=== PATIENT | male | born 1955 | race Caucasian/White ===

== ENCOUNTER 2017-07-18 16:21 | Inpatient (IN) ==
[2017-07-18] MEDS ORDERED: ONDANSETRON 4 MG/2 ML VIAL IV PRN (21:58)
[2017-07-18] MEDS ORDERED: ACETAMINOPHEN 325 MG TABLET PO PRN (21:58)
[2017-07-18] MEDS ORDERED: ALBUTEROL 2.5 MG/3 ML NEB RESP TX PRN (22:45)
[2017-07-18] MEDS: ENOXAPARIN 40 MG/0.4 ML SYRINGE SUBCUT SCH (23:02)
[2017-07-18] MEDS: methylPREDNISolone SOD SUC 40 MG/1 ML VIAL IV SCH (23:02)
[2017-07-18] MEDS: SODIUM CHLORIDE 0.9% 1,000 ML IV SCH (23:03)
[2017-07-18] MEDS: AZITHROMYCIN INJ 500 MG in SODIUM CHLORIDE 0.9% 250 ML IV SCH (23:51)
[2017-07-19] MEDS: ALBUTEROL/IPRATROPIUM 3 ML NEB RESP TX SCH ×4 (00:04→20:48)
[2017-07-19] MEDS: DILTIAZEM INJ 100 MG in SODIUM CHLORIDE 0.9% 100 ML IV SCH (00:30)
[2017-07-19] MEDS ORDERED: METAXALONE 800 MG TABLET PO PRN (00:49)
[2017-07-19 03:53] LABS: Basophils # 0.1 10*3/uL (0.0-0.2); Basophils % 0.2 % (0.0-0.8); Hematocrit 32.3 VOL% (42.0-52.0); Hemoglobin 10.1 GM/DL (14.0-18.0); Immature Granulocytes % 1.7 %; Immature Granulocytes Absolute 0.63 #; Lymphocytes # 0.4 10*3/uL (1.4-4.0); Mean Corpuscular HGB Conc 31.3 GM/DL (32-36); Mean Corpuscular Hemoglobin 23 PG (27-34); Mean Corpuscular Volume 72.9 FL (87-102); Mean Platelet Volume 11.1 FL (9.6-12.0); Monocytes # 0.8 10*3/uL (0.11-0.8); Monocytes % 2.2 % (1.7-12.7); Neutrophils # 36.2 10*3/uL (1.4-7.4); Neutrophils % 94.9 % (38.7-73.9); Platelet Count 286 T/CUMM (130-400); Red Blood Count 4.43 MC/CUMM (3.8-5.5); Red Cell Distribution Width 16.8 % (9.3-17.3); White Blood Count 38.1 T/CUMM (4-12)
[2017-07-19 04:30] LABS: Alanine Aminotransferase < 9 U/L (16-61); Albumin 1.8 G/DL (3.4-5.0); Alkaline Phosphatase 122 U/L (45-117); Aspartate Amino Transferase 11 U/L (0-37); Blood Urea Nitrogen 7 MG/DL (7-18); Free T4 (Free Thyroxine) 1.06 NG/DL (0.76-1.46); Glucose 115 MG/DL (74-106); Magnesium 1.8 MG/DL (1.8-2.4); Osmolality,Calculated 260.7 MOS/KG (273-304); Potassium 3.8 MMOL/L (3.5-5.1); Sodium 131 MMOL/L (136-145); Thyroid Stimulating Hormone 0.328 uIU/ml (0.358-3.74); Total Protein 6.6 G/DL (6.4-8.3)
[2017-07-19 05:05] LABS: Anisocytosis 1+; Band Neutrophils 2 % (0-10); Lymphocytes 2 % (20-55); Macrocytosis 1+; Platelet Estimate Normal; Segmented Neutrophils 94 % (50-85); Total Cells Counted 100
[2017-07-19] MEDS: methylPREDNISolone SOD SUC 40 MG/1 ML VIAL IV SCH ×3 (07:15→22:18)
[2017-07-19] MEDS ORDERED: PANTOPRAZOLE 40 MG TABLET PO SCH (09:00)
[2017-07-19] MEDS: SODIUM CHLORIDE 0.9% 1,000 ML IV SCH ×2 (09:21→17:37)
[2017-07-19] MEDS: CALCIUM (CITRATE)/VITAMIN D 200 MG-125 UNIT TABLET PO SCH (09:22)
[2017-07-19] MEDS: METOPROLOL TARTRATE 25 MG TABLET PO SCH ×2 (09:23→22:19)
[2017-07-19] MEDS: ALPRAZolam 0.5 MG TABLET PO SCH ×3 (09:23→22:19)
[2017-07-19] MEDS: PANTOPRAZOLE 40 MG TABLET PO SCH ×2 (09:23→22:19)
[2017-07-19] MEDS: GABAPENTIN 400 MG CAPSULE PO SCH (09:23)
[2017-07-19] MEDS: ASPIRIN 325 MG TABLET PO SCH (09:24)
[2017-07-19] MEDS: POTASSIUM CHLORIDE 10 MEQ TABLET PO SCH (09:24)
[2017-07-19] MEDS: DOCUSATE SODIUM 100 MG CAPSULE PO SCH (09:24)
[2017-07-19] MEDS: ALFUZOSIN 10 MG TABLET PO SCH (09:24)
[2017-07-19] MEDS ORDERED: SODIUM CHLORIDE 0.9% 500 ML IV ONE (10:48)
[2017-07-19] MEDS: DOPamine 800 MG/250 ML PREMIX IV SCH (11:28)
[2017-07-19] MEDS: cefTRIAXone 1,000 MG in SYRINGE 1 EACH IV SCH (17:37)
[2017-07-19] MEDS: AZITHROMYCIN INJ 500 MG in SODIUM CHLORIDE 0.9% 250 ML IV SCH (22:18)
[2017-07-19] MEDS: ENOXAPARIN 40 MG/0.4 ML SYRINGE SUBCUT SCH (22:19)
[2017-07-19] MEDS: SERTRALINE 100 MG TABLET PO SCH (22:19)
[2017-07-20] MEDS: NOREPINEPHRINE 8 MG in SODIUM CHLORIDE 0.9% 242 ML IV SCH ×2 (00:05→23:31)
[2017-07-20] MEDS: ALBUTEROL/IPRATROPIUM 3 ML NEB RESP TX SCH ×4 (00:22→19:30)
[2017-07-20] MEDS: DILTIAZEM INJ 100 MG in SODIUM CHLORIDE 0.9% 100 ML IV SCH ×2 (02:41→21:35)
[2017-07-20] MEDS: SODIUM CHLORIDE 0.9% 1,000 ML IV SCH ×3 (03:30→18:15)
[2017-07-20 05:54] LABS: Basophils % 0.1 % (0.0-0.8); Hematocrit 28.8 VOL% (42.0-52.0); Hemoglobin 8.7 GM/DL (14.0-18.0); Immature Granulocytes % 0.8 %; Immature Granulocytes Absolute 0.18 #; Lymphocytes # 0.4 10*3/uL (1.4-4.0); Lymphocytes % 1.7 % (21.2-54.2); Mean Corpuscular HGB Conc 30.2 GM/DL (32-36); Mean Corpuscular Hemoglobin 23 PG (27-34); Mean Corpuscular Volume 74.4 FL (87-102); Mean Platelet Volume 11.4 FL (9.6-12.0); Monocytes # 0.5 10*3/uL (0.11-0.8); Monocytes % 2.2 % (1.7-12.7); Neutrophils # 21.8 10*3/uL (1.4-7.4); Neutrophils % 95.2 % (38.7-73.9); Platelet Count 287 T/CUMM (130-400); Red Blood Count 3.87 MC/CUMM (3.8-5.5); Red Cell Distribution Width 17.2 % (9.3-17.3); White Blood Count 22.9 T/CUMM (4-12)
[2017-07-20 06:22] LABS: Alanine Aminotransferase < 9 U/L (16-61); Albumin 1.7 G/DL (3.4-5.0); Alkaline Phosphatase 113 U/L (45-117); Aspartate Amino Transferase 9 U/L (0-37); Blood Urea Nitrogen 16 MG/DL (7-18); Calcium 7.9 MG/DL (8.5-10.1); Glucose 139 MG/DL (74-106); Osmolality,Calculated 272.1 MOS/KG (273-304); Potassium 4.3 MMOL/L (3.5-5.1); Sodium 135 MMOL/L (136-145); Total Protein 6.4 G/DL (6.4-8.3)
[2017-07-20 06:39] LABS: Giant Platelets Few; Hypochromasia 1+; Lymphocytes 3 % (20-55); Macrocytosis Slight; Ovalocytes Slight; Platelet Estimate Adequate; Segmented Neutrophils 95 % (50-85); Total Cells Counted 100
[2017-07-20] MEDS: methylPREDNISolone SOD SUC 40 MG/1 ML VIAL IV SCH ×3 (07:02→22:39)
[2017-07-20] MEDS: METOPROLOL TARTRATE 25 MG TABLET PO SCH ×2 (11:05→20:13)
[2017-07-20] MEDS: DOCUSATE SODIUM 100 MG CAPSULE PO SCH (11:05)
[2017-07-20] MEDS: PANTOPRAZOLE 40 MG TABLET PO SCH ×2 (11:05→20:13)
[2017-07-20] MEDS: CALCIUM (CITRATE)/VITAMIN D 200 MG-125 UNIT TABLET PO SCH (11:06)
[2017-07-20] MEDS: ASPIRIN 325 MG TABLET PO SCH (11:06)
[2017-07-20] MEDS: ALFUZOSIN 10 MG TABLET PO SCH (11:06)
[2017-07-20] MEDS: ALPRAZolam 0.5 MG TABLET PO SCH ×3 (11:06→20:13)
[2017-07-20] MEDS: POTASSIUM CHLORIDE 10 MEQ TABLET PO SCH (11:06)
[2017-07-20] MEDS: GABAPENTIN 400 MG CAPSULE PO SCH (11:06)
[2017-07-20] MEDS: DOPamine 800 MG/250 ML PREMIX IV SCH (11:08)
[2017-07-20] MEDS: cefTRIAXone 1,000 MG in SYRINGE 1 EACH IV SCH (15:22)
[2017-07-20] MEDS: SERTRALINE 100 MG TABLET PO SCH (20:13)
[2017-07-20] MEDS: traZODone 50 MG TABLET PO PRN (20:20)
[2017-07-20] MEDS: AZITHROMYCIN INJ 500 MG in SODIUM CHLORIDE 0.9% 250 ML IV SCH (22:39)
[2017-07-21] MEDS: ALBUTEROL/IPRATROPIUM 3 ML NEB RESP TX SCH ×4 (00:36→19:17)
[2017-07-21] MEDS: SODIUM CHLORIDE 0.9% 1,000 ML IV SCH ×2 (03:45→10:56)
[2017-07-21 04:32] LABS: Hematocrit 26.3 VOL% (42.0-52.0); Hemoglobin 7.8 GM/DL (14.0-18.0)
[2017-07-21] MEDS: methylPREDNISolone SOD SUC 40 MG/1 ML VIAL IV SCH ×3 (06:19→23:21)
[2017-07-21 07:46] LABS: Osmolality,Calculated 277.5 MOS/KG (273-304)
[2017-07-21] MEDS ORDERED: FUROSEMIDE 20 MG/2 ML VIAL IV ONE ×2 (09:29→17:04)
[2017-07-21] MEDS ORDERED: FUROSEMIDE 40 MG/4 ML VIAL ONE (09:35)
[2017-07-21] MEDS: CALCIUM (CITRATE)/VITAMIN D 200 MG-125 UNIT TABLET PO SCH (09:51)
[2017-07-21] MEDS: ALPRAZolam 0.5 MG TABLET PO SCH ×3 (09:51→23:15)
[2017-07-21] MEDS: ALFUZOSIN 10 MG TABLET PO SCH (09:51)
[2017-07-21] MEDS: POTASSIUM CHLORIDE 10 MEQ TABLET PO SCH (09:51)
[2017-07-21] MEDS: GABAPENTIN 400 MG CAPSULE PO SCH (09:52)
[2017-07-21] MEDS: DOCUSATE SODIUM 100 MG CAPSULE PO SCH (09:52)
[2017-07-21] MEDS: ASPIRIN 325 MG TABLET PO SCH (09:52)
[2017-07-21] MEDS: PANTOPRAZOLE 40 MG TABLET PO SCH ×2 (09:52→23:15)
[2017-07-21] MEDS: METOPROLOL TARTRATE 25 MG TABLET PO SCH ×2 (09:53→23:14)
[2017-07-21] MEDS: cefTRIAXone 1,000 MG in SYRINGE 1 EACH IV SCH (15:19)
[2017-07-21 19:09] LABS: Apearance,Urine CLEAR (Clear); Bilirubin,Urine Negative (Negative); Blood, Urine Negative (Negative); Glucose,Urine (UA) Negative (Negative); Ketones,Urine Negative (Negative); Nitrite,Urine Negative (Negative); Protein,Urine Negative; Urine Color Colorless (Yellow); Urine Specific Gravity 1.004 (1.001-1.035); Urine Urobilinogen < 2.0 EU/DL (0.2-1.0); WBC,Urine <1 /HPF (0-6)
[2017-07-21] MEDS: DILTIAZEM INJ 100 MG in SODIUM CHLORIDE 0.9% 100 ML IV SCH (21:30)
[2017-07-21 22:34] LABS: ABG Base Excess 5.2 MMOL/L (-2.5-2.5); ABG HCO3 28.3 MMOL/L (20-26); ABG Oxygen Saturation 44.9 % (95-100); ABG PCO2 60.4 MM HG (35-48); ABG PH 7.337 (7.35-7.45); ABG TCO2 30.3 MMOL/L (23-27); Allen Test Positive; Pt O2 Delivery Device BIPAP
[2017-07-21 22:35] LABS: ABG PO2 28.8 MM HG (80-95)
[2017-07-21] MEDS: SERTRALINE 100 MG TABLET PO SCH (23:15)
[2017-07-21] MEDS: AZITHROMYCIN INJ 500 MG in SODIUM CHLORIDE 0.9% 250 ML IV SCH (23:21)
[2017-07-21] MEDS: NOREPINEPHRINE 8 MG in SODIUM CHLORIDE 0.9% 242 ML IV SCH (23:59)
[2017-07-22] MEDS ORDERED: PROPOFOL 1,000 MG/100 ML BOTTLE IV ONE (00:27)
[2017-07-22] MEDS ORDERED: FUROSEMIDE 40 MG/4 ML VIAL ONE (00:37)
[2017-07-22] MEDS: PROPOFOL 1,000 MG/100 ML BOTTLE IV SCH ×2 (00:50→09:10)
[2017-07-22] MEDS ORDERED: PROPOFOL 200 MG/20 ML VIAL IV ONE (01:05)
[2017-07-22] MEDS: ALBUTEROL/IPRATROPIUM 3 ML NEB RESP TX SCH ×4 (01:08→19:17)
[2017-07-22] MEDS ORDERED: FUROSEMIDE 40 MG/4 ML VIAL IV ONE (01:09)
[2017-07-22 01:17] LABS: ABG Base Excess 0.1 MMOL/L (-2.5-2.5); ABG HCO3 24.6 MMOL/L (20-26); ABG Oxygen Saturation 98.8 % (95-100); ABG PH 7.215 (7.35-7.45); ABG TCO2 27.8 MMOL/L (23-27); Allen Test Positive; Pt O2 Delivery Device Ventilator
[2017-07-22 01:19] LABS: ABG PCO2 72.2 MM HG (35-48)
[2017-07-22 01:22] LABS: Hemoglobin 8.7 GM/DL (14.0-18.0); Immature Granulocytes % 1.2 %; Immature Granulocytes Absolute 0.26 #; Lymphocytes # 0.5 10*3/uL (1.4-4.0); Lymphocytes % 2.2 % (21.2-54.2); Mean Corpuscular HGB Conc 28.3 GM/DL (32-36); Mean Corpuscular Hemoglobin 23 PG (27-34); Mean Corpuscular Volume 79.3 FL (87-102); Mean Platelet Volume 11.8 FL (9.6-12.0); Monocytes # 1.3 10*3/uL (0.11-0.8); Monocytes % 5.8 % (1.7-12.7); NRBC # 0.11 10*3/uL; Neutrophils # 19.9 10*3/uL (1.4-7.4); Neutrophils % 90.8 % (38.7-73.9); Platelet Count 273 T/CUMM (130-400); Red Blood Count 3.87 MC/CUMM (3.8-5.5); Red Cell Distribution Width 18.5 % (9.3-17.3); White Blood Count 21.9 T/CUMM (4-12)
[2017-07-22 01:28] LABS: Hematocrit 29.9 VOL% (42.0-52.0)
[2017-07-22 01:30] LABS: INR 1.2; PT Patient Result 12.6 SECS; Partial Thromboplastin Time 27.4 SECS (0-40)
[2017-07-22 01:45] LABS: Alanine Aminotransferase 24 U/L (16-61); Albumin 1.8 G/DL (3.4-5.0); Alkaline Phosphatase 110 U/L (45-117); Aspartate Amino Transferase 24 U/L (0-37); Bilirubin,Total < 0.39 MG/DL (0.2-1.0); Blood Urea Nitrogen 15 MG/DL (7-18); Calcium 8.4 MG/DL (8.5-10.1); Glucose 241 MG/DL (74-106); Osmolality,Calculated 281.8 MOS/KG (273-304); Potassium 3.7 MMOL/L (3.5-5.1); Sodium 137 MMOL/L (136-145); Total Protein 6.2 G/DL (6.4-8.3)
[2017-07-22 01:54] LABS: Troponin I Only < 0.015 NG/ML (0.00-0.045)
[2017-07-22 02:23] LABS: Band Neutrophils 1 % (0-10); Lymphocytes 1 % (20-55); Myelocytes 2 %; Segmented Neutrophils 94 % (50-85); Total Cells Counted 100
[2017-07-22 02:24] LABS: Anisocytosis 1+; Hypochromasia 1+; Platelet Estimate Adequate; Target Cells 1+
[2017-07-22] MEDS ORDERED: SODIUM CHLORIDE 0.9% 1,000 ML IV ONE (02:33)
[2017-07-22] MEDS: CEFEPIME 1,000 MG in SYRINGE 1 EACH IV SCH ×3 (04:15→18:10)
[2017-07-22 04:32] LABS: ABG Oxygen Saturation 98.9 % (95-100); ABG PCO2 63.2 MM HG (35-48); ABG PH 7.305 (7.35-7.45); ABG TCO2 29.8 MMOL/L (23-27)
[2017-07-22] MEDS: VANCOMYCIN INJ 750 MG in SODIUM CHLORIDE 0.9% 150 ML IV SCH ×2 (05:00→15:01)
[2017-07-22] MEDS: NOREPINEPHRINE 8 MG in SODIUM CHLORIDE 0.9% 242 ML IV SCH (05:10)
[2017-07-22] MEDS: methylPREDNISolone SOD SUC 40 MG/1 ML VIAL IV SCH ×3 (06:54→22:34)
[2017-07-22] MEDS: ASPIRIN 325 MG TABLET PO SCH (11:02)
[2017-07-22] MEDS: ALPRAZolam 0.5 MG TABLET PO SCH ×3 (11:02→20:33)
[2017-07-22] MEDS: ALFUZOSIN 10 MG TABLET PO SCH (11:02)
[2017-07-22] MEDS: POTASSIUM CHLORIDE 10 MEQ TABLET PO SCH (11:02)
[2017-07-22] MEDS: PANTOPRAZOLE 40 MG TABLET PO SCH ×2 (11:02→20:34)
[2017-07-22] MEDS: CALCIUM (CITRATE)/VITAMIN D 200 MG-125 UNIT TABLET PO SCH (11:02)
[2017-07-22] MEDS: GABAPENTIN 400 MG CAPSULE PO SCH (11:03)
[2017-07-22] MEDS: METOPROLOL TARTRATE 25 MG TABLET PO SCH ×2 (11:03→20:33)
[2017-07-22] MEDS: DOCUSATE SODIUM 100 MG CAPSULE PO SCH (11:03)
[2017-07-22] MEDS ORDERED: GLUCAGON 1 MG VIAL IM PRN (11:34)
[2017-07-22] MEDS ORDERED: DEXTROSE 50% 25 GM/50 ML VIAL IV PRN (11:34)
[2017-07-22] MEDS: INSULIN REGULAR 100 UNIT/ML SUBCUT SCH ×3 (12:12→23:49)
[2017-07-22] MEDS: SERTRALINE 100 MG TABLET PO SCH (20:33)
[2017-07-23] MEDS: ALBUTEROL/IPRATROPIUM 3 ML NEB RESP TX SCH ×4 (00:02→19:52)
[2017-07-23] MEDS: DILTIAZEM INJ 100 MG in SODIUM CHLORIDE 0.9% 100 ML IV SCH ×3 (00:11→22:24)
[2017-07-23] MEDS: NOREPINEPHRINE 8 MG in SODIUM CHLORIDE 0.9% 242 ML IV SCH ×2 (00:12→23:34)
[2017-07-23] MEDS: PROPOFOL 1,000 MG/100 ML BOTTLE IV SCH ×2 (01:39→18:43)
[2017-07-23] MEDS: CEFEPIME 1,000 MG in SYRINGE 1 EACH IV SCH ×3 (02:28→18:40)
[2017-07-23] MEDS: VANCOMYCIN INJ 750 MG in SODIUM CHLORIDE 0.9% 150 ML IV SCH ×2 (02:35→15:00)
[2017-07-23] MEDS: INSULIN REGULAR 100 UNIT/ML SUBCUT SCH ×4 (07:00→23:37)
[2017-07-23] MEDS: methylPREDNISolone SOD SUC 40 MG/1 ML VIAL IV SCH ×3 (07:49→22:40)
[2017-07-23] MEDS: ALFUZOSIN 10 MG TABLET PO SCH (08:25)
[2017-07-23] MEDS: ASPIRIN 325 MG TABLET PO SCH (08:25)
[2017-07-23] MEDS: CALCIUM (CITRATE)/VITAMIN D 200 MG-125 UNIT TABLET PO SCH (08:25)
[2017-07-23] MEDS: METOPROLOL TARTRATE 25 MG TABLET PO SCH ×2 (08:25→21:01)
[2017-07-23] MEDS: GABAPENTIN 400 MG CAPSULE PO SCH (08:26)
[2017-07-23] MEDS: PANTOPRAZOLE 40 MG TABLET PO SCH ×2 (08:26→20:59)
[2017-07-23] MEDS: POTASSIUM CHLORIDE 10 MEQ TABLET PO SCH (08:26)
[2017-07-23] MEDS: DOCUSATE SODIUM 100 MG CAPSULE PO SCH (08:26)
[2017-07-23] MEDS: ALPRAZolam 0.5 MG TABLET PO SCH ×3 (08:26→20:59)
[2017-07-23 09:36] LABS: Allen Test Positive; Pt O2 Delivery Device Ventilator
[2017-07-23 09:37] LABS: ABG Base Excess 8.3 MMOL/L (-2.5-2.5); ABG Oxygen Saturation 92.2 % (95-100); ABG PCO2 63.4 MM HG (35-48); ABG PH 7.355 (7.35-7.45); ABG PO2 67.4 MM HG (80-95); ABG TCO2 33.2 MMOL/L (23-27)
[2017-07-23] MEDS ORDERED: FUROSEMIDE 20 MG/2 ML VIAL IV ONE (11:09)
[2017-07-23] MEDS: DILTIAZEM 30 MG TABLET PO SCH ×3 (13:32→21:00)
[2017-07-23] MEDS: SPIRONOLACTONE 25 MG TABLET PO SCH ×2 (13:32→21:00)
[2017-07-23] MEDS: SERTRALINE 100 MG TABLET PO SCH (20:59)
[2017-07-24] MEDS: ALBUTEROL/IPRATROPIUM 3 ML NEB RESP TX SCH ×4 (01:08→20:46)
[2017-07-24 02:23] LABS: ABG Base Excess 9.8 MMOL/L (-2.5-2.5); ABG HCO3 33.6 MMOL/L (20-26); ABG Oxygen Saturation 99.6 % (95-100); ABG PCO2 61.4 MM HG (35-48); ABG PH 7.383 (7.35-7.45); ABG TCO2 34.2 MMOL/L (23-27); Pt O2 Delivery Device Ventilator
[2017-07-24] MEDS: CEFEPIME 1,000 MG in SYRINGE 1 EACH IV SCH ×3 (03:25→18:48)
[2017-07-24] MEDS: VANCOMYCIN INJ 750 MG in SODIUM CHLORIDE 0.9% 150 ML IV SCH ×2 (03:34→16:18)
[2017-07-24 04:42] LABS: Basophils % 0.1 % (0.0-0.8); Hematocrit 25.5 VOL% (42.0-52.0); Hemoglobin 7.7 GM/DL (14.0-18.0); Immature Granulocytes % 0.8 %; Immature Granulocytes Absolute 0.08 #; Lymphocytes # 0.3 10*3/uL (1.4-4.0); Lymphocytes % 2.9 % (21.2-54.2); Mean Corpuscular HGB Conc 30.2 GM/DL (32-36); Mean Corpuscular Hemoglobin 23 PG (27-34); Mean Corpuscular Volume 74.6 FL (87-102); Mean Platelet Volume 11.4 FL (9.6-12.0); Monocytes # 0.5 10*3/uL (0.11-0.8); Monocytes % 5.2 % (1.7-12.7); Neutrophils # 9.1 10*3/uL (1.4-7.4); Platelet Count 223 T/CUMM (130-400); Red Blood Count 3.42 MC/CUMM (3.8-5.5); Red Cell Distribution Width 17.4 % (9.3-17.3)
[2017-07-24 05:00] LABS: Calcium 8.7 MG/DL (8.5-10.1); Osmolality,Calculated 280.7 MOS/KG (273-304); Potassium 4.1 MMOL/L (3.5-5.1)
[2017-07-24 05:08] LABS: Giant Platelets Few; Hypochromasia 1+; Lymphocytes 2 % (20-55); Platelet Estimate Adequate; Segmented Neutrophils 93 % (50-85); Total Cells Counted 100
[2017-07-24 05:10] LABS: Magnesium 2.4 MG/DL (1.8-2.4); Phosphorous 2.1 MG/DL (2.5-4.9)
[2017-07-24] MEDS: methylPREDNISolone SOD SUC 40 MG/1 ML VIAL IV SCH ×3 (06:36→23:04)
[2017-07-24] MEDS: INSULIN REGULAR 100 UNIT/ML SUBCUT SCH ×4 (06:46→23:51)
[2017-07-24] MEDS: DILTIAZEM 30 MG TABLET PO SCH (08:34)
[2017-07-24] MEDS: ALFUZOSIN 10 MG TABLET PO SCH (08:34)
[2017-07-24] MEDS: POTASSIUM CHLORIDE 10 MEQ TABLET PO SCH (08:35)
[2017-07-24] MEDS: DOCUSATE SODIUM 100 MG CAPSULE PO SCH (08:35)
[2017-07-24] MEDS: ALPRAZolam 0.5 MG TABLET PO SCH ×3 (08:35→20:17)
[2017-07-24] MEDS: CALCIUM (CITRATE)/VITAMIN D 200 MG-125 UNIT TABLET PO SCH (08:35)
[2017-07-24] MEDS: METOPROLOL TARTRATE 25 MG TABLET PO SCH ×2 (08:35→20:17)
[2017-07-24] MEDS: ASPIRIN 325 MG TABLET PO SCH (08:35)
[2017-07-24] MEDS: GABAPENTIN 400 MG CAPSULE PO SCH (08:35)
[2017-07-24] MEDS: PANTOPRAZOLE 40 MG TABLET PO SCH ×2 (08:35→20:17)
[2017-07-24] MEDS: PROPOFOL 1,000 MG/100 ML BOTTLE IV SCH ×2 (08:36→16:17)
[2017-07-24] MEDS ORDERED: AMIODARONE INJ 450 MG in DEXTROSE 5% 241 ML IV SCH (12:00)
[2017-07-24] MEDS: AMIODARONE INJ 450 MG in DEXTROSE 5% 241 ML IV SCH (18:47)
[2017-07-24] MEDS: SERTRALINE 100 MG TABLET PO SCH (20:17)
[2017-07-24] MEDS: NOREPINEPHRINE 8 MG in SODIUM CHLORIDE 0.9% 242 ML IV SCH (23:50)
[2017-07-25] MEDS: ALBUTEROL/IPRATROPIUM 3 ML NEB RESP TX SCH ×4 (00:41→20:00)
[2017-07-25] MEDS: PROPOFOL 1,000 MG/100 ML BOTTLE IV SCH ×2 (01:20→09:11)
[2017-07-25] MEDS: CEFEPIME 1,000 MG in SYRINGE 1 EACH IV SCH ×3 (03:07→20:42)
[2017-07-25 03:14] LABS: ABG HCO3 33.8 MMOL/L (20-26); ABG PCO2 49.3 MM HG (35-48); ABG PH 7.461 (7.35-7.45); ABG TCO2 32.8 MMOL/L (23-27); Allen Test Positive; Pt O2 Delivery Device Ventilator
[2017-07-25] MEDS: VANCOMYCIN INJ 750 MG in SODIUM CHLORIDE 0.9% 150 ML IV SCH ×2 (03:15→15:18)
[2017-07-25 04:58] LABS: Hematocrit 24.9 VOL% (42.0-52.0); Hemoglobin 7.7 GM/DL (14.0-18.0); Immature Granulocytes % 0.8 %; Immature Granulocytes Absolute 0.07 #; Lymphocytes # 0.3 10*3/uL (1.4-4.0); Lymphocytes % 3.7 % (21.2-54.2); Mean Corpuscular HGB Conc 30.9 GM/DL (32-36); Mean Corpuscular Hemoglobin 22 PG (27-34); Mean Corpuscular Volume 72.6 FL (87-102); Mean Platelet Volume 11.4 FL (9.6-12.0); Monocytes # 0.5 10*3/uL (0.11-0.8); Monocytes % 5.4 % (1.7-12.7); Neutrophils % 90.1 % (38.7-73.9); Platelet Count 225 T/CUMM (130-400); Red Blood Count 3.43 MC/CUMM (3.8-5.5); Red Cell Distribution Width 17.1 % (9.3-17.3); White Blood Count 8.8 T/CUMM (4-12)
[2017-07-25 05:19] LABS: Calcium 8.3 MG/DL (8.5-10.1); Osmolality,Calculated 279.8 MOS/KG (273-304); Potassium 4.3 MMOL/L (3.5-5.1)
[2017-07-25 05:39] LABS: Band Neutrophils 1 % (0-10); Lymphocytes 2 % (20-55); Platelet Estimate Normal; Segmented Neutrophils 96 % (50-85); Total Cells Counted 100
[2017-07-25 05:40] LABS: Anisocytosis 1+; Hypochromasia 1+
[2017-07-25] MEDS: INSULIN REGULAR 100 UNIT/ML SUBCUT SCH ×3 (06:24→19:15)
[2017-07-25] MEDS: methylPREDNISolone SOD SUC 40 MG/1 ML VIAL IV SCH ×3 (06:24→20:45)
[2017-07-25] MEDS ORDERED: LIDOCAINE 2% 20 ML VIAL RESP TX ONE (07:30)
[2017-07-25] MEDS ORDERED: LIDOCAINE 1% 20 ML VIAL MISC INJ ONE (07:30)
[2017-07-25] MEDS: ASPIRIN 325 MG TABLET PO SCH (09:08)
[2017-07-25] MEDS: METOPROLOL TARTRATE 25 MG TABLET PO SCH ×2 (09:08→20:51)
[2017-07-25] MEDS: CALCIUM (CITRATE)/VITAMIN D 200 MG-125 UNIT TABLET PO SCH (09:08)
[2017-07-25] MEDS: PANTOPRAZOLE 40 MG TABLET PO SCH ×2 (09:09→20:51)
[2017-07-25] MEDS: GABAPENTIN 400 MG CAPSULE PO SCH (09:09)
[2017-07-25] MEDS: ALFUZOSIN 10 MG TABLET PO SCH (09:09)
[2017-07-25] MEDS: ALPRAZolam 0.5 MG TABLET PO SCH ×3 (09:10→20:51)
[2017-07-25] MEDS ORDERED: DOCUSATE SODIUM 100 MG/10 ML UDCUP PO PRN (10:15)
[2017-07-25] MEDS: DOCUSATE SODIUM 100 MG CAPSULE PO SCH (10:22)
[2017-07-25] MEDS ORDERED: SODIUM CHLORIDE 0.9% 1,000 ML IV SCH (11:00)
[2017-07-25] MEDS: AMIODARONE INJ 450 MG in DEXTROSE 5% 241 ML IV SCH (14:55)
[2017-07-25] MEDS: ZINC OXIDE PASTE 113 GM TUBE TOP SCH (20:52)
[2017-07-25] MEDS: SERTRALINE 100 MG TABLET PO SCH (20:56)
[2017-07-26] MEDS: ALBUTEROL/IPRATROPIUM 3 ML NEB RESP TX SCH ×4 (00:24→19:43)
[2017-07-26] MEDS: INSULIN REGULAR 100 UNIT/ML SUBCUT SCH ×4 (01:24→17:30)
[2017-07-26 03:10] LABS: ABG Base Excess 10.2 MMOL/L (-2.5-2.5); ABG Oxygen Saturation 99.5 % (95-100); ABG PCO2 42.3 MM HG (35-48); ABG PH 7.516 (7.35-7.45); ABG TCO2 31.9 MMOL/L (23-27); Allen Test Positive; Pt O2 Delivery Device Ventilator
[2017-07-26] MEDS: VANCOMYCIN INJ 750 MG in SODIUM CHLORIDE 0.9% 150 ML IV SCH ×2 (03:24→15:07)
[2017-07-26] MEDS: CEFEPIME 1,000 MG in SYRINGE 1 EACH IV SCH ×3 (04:31→21:24)
[2017-07-26 05:22] LABS: Hematocrit 24.5 VOL% (42.0-52.0); Hemoglobin 7.8 GM/DL (14.0-18.0); Immature Granulocytes % 0.8 %; Immature Granulocytes Absolute 0.08 #; Lymphocytes # 0.5 10*3/uL (1.4-4.0); Lymphocytes % 5.5 % (21.2-54.2); Mean Corpuscular HGB Conc 31.8 GM/DL (32-36); Mean Corpuscular Hemoglobin 23 PG (27-34); Mean Corpuscular Volume 71.8 FL (87-102); Mean Platelet Volume 11.6 FL (9.6-12.0); Monocytes # 0.7 10*3/uL (0.11-0.8); Monocytes % 7.2 % (1.7-12.7); NRBC # 0.02 10*3/uL; Neutrophils # 8.6 10*3/uL (1.4-7.4); Neutrophils % 86.5 % (38.7-73.9); Platelet Count 233 T/CUMM (130-400); Red Blood Count 3.41 MC/CUMM (3.8-5.5); Red Cell Distribution Width 17.2 % (9.3-17.3); White Blood Count 9.9 T/CUMM (4-12)
[2017-07-26 05:46] LABS: Calcium 8.5 MG/DL (8.5-10.1); Magnesium 2.4 MG/DL (1.8-2.4); Osmolality,Calculated 277.8 MOS/KG (273-304); Potassium 4.2 MMOL/L (3.5-5.1)
[2017-07-26 06:15] LABS: Hypochromasia 2+; Microcytosis 1+; Target Cells 1+
[2017-07-26 06:16] LABS: Platelet Estimate Adequate
[2017-07-26] MEDS: AMIODARONE INJ 450 MG in DEXTROSE 5% 241 ML IV SCH ×2 (06:33→21:45)
[2017-07-26] MEDS: methylPREDNISolone SOD SUC 40 MG/1 ML VIAL IV SCH ×2 (09:03→21:25)
[2017-07-26] MEDS: PROPOFOL 1,000 MG/100 ML BOTTLE IV SCH (09:04)
[2017-07-26] MEDS ORDERED: PROPOFOL 200 MG/20 ML VIAL IV ONE (11:40)
[2017-07-26] MEDS: METOPROLOL TARTRATE 25 MG TABLET PO SCH ×2 (12:25→21:25)
[2017-07-26] MEDS: ASPIRIN 325 MG TABLET PO SCH (12:25)
[2017-07-26] MEDS: ALFUZOSIN 10 MG TABLET PO SCH (12:25)
[2017-07-26] MEDS: CALCIUM (CITRATE)/VITAMIN D 200 MG-125 UNIT TABLET PO SCH (12:25)
[2017-07-26] MEDS: PANTOPRAZOLE 40 MG VIAL IV SCH ×2 (12:26→21:25)
[2017-07-26] MEDS: ALPRAZolam 0.5 MG TABLET PO SCH ×3 (12:26→21:25)
[2017-07-26] MEDS: GABAPENTIN 400 MG CAPSULE PO SCH (12:26)
[2017-07-26] MEDS: ZINC OXIDE PASTE 113 GM TUBE TOP SCH ×2 (12:28→21:25)
[2017-07-26] MEDS: PANTOPRAZOLE 40 MG TABLET PO SCH (13:14)
[2017-07-26] MEDS: SERTRALINE 100 MG TABLET PO SCH (21:25)
[2017-07-26] MEDS: traZODone 50 MG TABLET PO PRN (21:40)
[2017-07-27] MEDS: INSULIN REGULAR 100 UNIT/ML SUBCUT SCH ×2 (00:35→06:32)
[2017-07-27] MEDS: ALBUTEROL/IPRATROPIUM 3 ML NEB RESP TX SCH ×4 (01:10→19:16)
[2017-07-27] MEDS: CEFEPIME 1,000 MG in SYRINGE 1 EACH IV SCH ×3 (04:23→22:34)
[2017-07-27] MEDS: VANCOMYCIN INJ 750 MG in SODIUM CHLORIDE 0.9% 150 ML IV SCH ×2 (04:23→16:00)
[2017-07-27 04:38] LABS: Basophils % 0.1 % (0.0-0.8); Hematocrit 28.2 VOL% (42.0-52.0); Hemoglobin 8.7 GM/DL (14.0-18.0); Immature Granulocytes Absolute 0.12 #; Lymphocytes # 0.3 10*3/uL (1.4-4.0); Lymphocytes % 2.5 % (21.2-54.2); Mean Corpuscular HGB Conc 30.9 GM/DL (32-36); Mean Corpuscular Hemoglobin 23 PG (27-34); Mean Corpuscular Volume 73.2 FL (87-102); Monocytes # 0.4 10*3/uL (0.11-0.8); Monocytes % 3.1 % (1.7-12.7); Neutrophils % 93.3 % (38.7-73.9); Platelet Count 245 T/CUMM (130-400); Red Blood Count 3.85 MC/CUMM (3.8-5.5); Red Cell Distribution Width 17.8 % (9.3-17.3); White Blood Count 11.8 T/CUMM (4-12)
[2017-07-27 05:08] LABS: Calcium 8.5 MG/DL (8.5-10.1); Magnesium 2.6 MG/DL (1.8-2.4); Osmolality,Calculated 280.5 MOS/KG (273-304); Potassium 4.2 MMOL/L (3.5-5.1)
[2017-07-27 05:16] LABS: Magnesium 2.5 MG/DL (1.8-2.4); Phosphorous 4.4 MG/DL (2.5-4.9); Prealbumin 25.2 MG/DL (20-40)
[2017-07-27 05:48] LABS: Calcium 8.5 MG/DL (8.5-10.1); Osmolality,Calculated 278.7 MOS/KG (273-304); Potassium 4.2 MMOL/L (3.5-5.1)
[2017-07-27 06:00] LABS: Segmented Neutrophils 96 % (50-85); Total Cells Counted 100
[2017-07-27 06:01] LABS: Anisocytosis 1+; Platelet Estimate Normal; Target Cells 1+
[2017-07-27] MEDS: GABAPENTIN 400 MG CAPSULE PO SCH (08:51)
[2017-07-27] MEDS: methylPREDNISolone SOD SUC 40 MG/1 ML VIAL IV SCH ×2 (08:51→22:38)
[2017-07-27] MEDS: ALFUZOSIN 10 MG TABLET PO SCH (08:52)
[2017-07-27] MEDS: ALPRAZolam 0.5 MG TABLET PO SCH ×3 (08:52→22:37)
[2017-07-27] MEDS: ASPIRIN 325 MG TABLET PO SCH (08:52)
[2017-07-27] MEDS: METOPROLOL TARTRATE 25 MG TABLET PO SCH ×2 (08:52→22:37)
[2017-07-27] MEDS: AMIODARONE 200 MG TABLET PO SCH ×2 (08:52→22:37)
[2017-07-27] MEDS: CALCIUM (CITRATE)/VITAMIN D 200 MG-125 UNIT TABLET PO SCH (08:52)
[2017-07-27] MEDS: ZINC OXIDE PASTE 113 GM TUBE TOP SCH ×2 (08:53→22:45)
[2017-07-27] MEDS: PANTOPRAZOLE 40 MG VIAL IV SCH ×2 (08:53→22:38)
[2017-07-27] MEDS: ENOXAPARIN 40 MG/0.4 ML SYRINGE SUBCUT SCH (22:37)
[2017-07-27] MEDS: traZODone 50 MG TABLET PO PRN (22:37)
[2017-07-27] MEDS: SERTRALINE 100 MG TABLET PO SCH (22:38)
[2017-07-28] MEDS: ALBUTEROL/IPRATROPIUM 3 ML NEB RESP TX SCH ×4 (00:58→20:41)
[2017-07-28] MEDS: VANCOMYCIN INJ 750 MG in SODIUM CHLORIDE 0.9% 150 ML IV SCH ×2 (04:49→17:16)
[2017-07-28 05:09] LABS: Basophils % 0.1 % (0.0-0.8); Hematocrit 27.7 VOL% (42.0-52.0); Hemoglobin 8.5 GM/DL (14.0-18.0); Immature Granulocytes % 1.4 %; Immature Granulocytes Absolute 0.24 #; Lymphocytes # 0.3 10*3/uL (1.4-4.0); Lymphocytes % 1.5 % (21.2-54.2); Mean Corpuscular HGB Conc 30.7 GM/DL (32-36); Mean Corpuscular Hemoglobin 23 PG (27-34); Mean Corpuscular Volume 73.9 FL (87-102); Mean Platelet Volume 11.2 FL (9.6-12.0); Monocytes # 0.6 10*3/uL (0.11-0.8); Monocytes % 3.5 % (1.7-12.7); Neutrophils # 16.2 10*3/uL (1.4-7.4); Neutrophils % 93.5 % (38.7-73.9); Platelet Count 248 T/CUMM (130-400); Red Blood Count 3.75 MC/CUMM (3.8-5.5); Red Cell Distribution Width 18.1 % (9.3-17.3); White Blood Count 17.3 T/CUMM (4-12)
[2017-07-28 05:49] LABS: Alanine Aminotransferase 25 U/L (16-61); Albumin 1.7 G/DL (3.4-5.0); Alkaline Phosphatase 89 U/L (45-117); Aspartate Amino Transferase 14 U/L (0-37); Bilirubin,Total < 0.39 MG/DL (0.2-1.0); Blood Urea Nitrogen 17 MG/DL (7-18); Calcium 8.4 MG/DL (8.5-10.1); Glucose 121 MG/DL (74-106); Magnesium 2.4 MG/DL (1.8-2.4); Osmolality,Calculated 277.7 MOS/KG (273-304); Potassium 4.4 MMOL/L (3.5-5.1); Sodium 138 MMOL/L (136-145); Total Protein 5.4 G/DL (6.4-8.3)
[2017-07-28] MEDS: CEFEPIME 1,000 MG in SYRINGE 1 EACH IV SCH ×3 (06:26→21:41)
[2017-07-28 06:56] LABS: Band Neutrophils 2 % (0-10); Lymphocytes 2 % (20-55); Platelet Estimate Normal; Poikilocytosis 3+; Segmented Neutrophils 92 % (50-85); Total Cells Counted 100
[2017-07-28 06:57] LABS: Ovalocytes 1+; Target Cells 2+
[2017-07-28] MEDS: ASPIRIN 325 MG TABLET PO SCH (10:44)
[2017-07-28] MEDS: CALCIUM (CITRATE)/VITAMIN D 200 MG-125 UNIT TABLET PO SCH (10:45)
[2017-07-28] MEDS: METOPROLOL TARTRATE 25 MG TABLET PO SCH ×2 (10:45→21:41)
[2017-07-28] MEDS: AMIODARONE 200 MG TABLET PO SCH ×2 (10:45→21:42)
[2017-07-28] MEDS: POTASSIUM CHLORIDE 10 MEQ TABLET PO SCH (10:45)
[2017-07-28] MEDS: ALPRAZolam 0.5 MG TABLET PO SCH ×3 (10:46→21:45)
[2017-07-28] MEDS: ALFUZOSIN 10 MG TABLET PO SCH (10:46)
[2017-07-28] MEDS: GABAPENTIN 400 MG CAPSULE PO SCH (10:46)
[2017-07-28] MEDS: PANTOPRAZOLE 40 MG VIAL IV SCH ×2 (10:47→21:44)
[2017-07-28] MEDS: methylPREDNISolone SOD SUC 40 MG/1 ML VIAL IV SCH ×2 (10:54→21:42)
[2017-07-28] MEDS: ZINC OXIDE PASTE 113 GM TUBE TOP SCH ×2 (11:07→21:46)
[2017-07-28] MEDS ORDERED: FUROSEMIDE 40 MG TABLET PO ONE (18:43)
[2017-07-28] MEDS: SERTRALINE 100 MG TABLET PO SCH (21:45)
[2017-07-28] MEDS: traZODone 50 MG TABLET PO SCH (21:45)
[2017-07-28] MEDS: ENOXAPARIN 40 MG/0.4 ML SYRINGE SUBCUT SCH (21:45)
[2017-07-28] MEDS ORDERED: AMIODARONE INJ 150 MG in DEXTROSE 5% 100 ML IV ONE (22:55)
[2017-07-29] MEDS: ALBUTEROL/IPRATROPIUM 3 ML NEB RESP TX SCH ×4 (00:05→20:00)
[2017-07-29] MEDS ORDERED: DILTIAZEM 50 MG/10 ML VIAL IV ONE (01:01)
[2017-07-29] MEDS: VANCOMYCIN INJ 750 MG in SODIUM CHLORIDE 0.9% 150 ML IV SCH ×2 (05:12→15:35)
[2017-07-29] MEDS: CEFEPIME 1,000 MG in SYRINGE 1 EACH IV SCH ×2 (05:14→13:10)
[2017-07-29] MEDS ORDERED: AMIODARONE INJ 450 MG in DEXTROSE 5% 241 ML IV SCH (05:30)
[2017-07-29 05:55] LABS: Basophils % 0.1 % (0.0-0.8); Hemoglobin 8.4 GM/DL (14.0-18.0); Immature Granulocytes Absolute 0.19 #; Lymphocytes # 0.3 10*3/uL (1.4-4.0); Lymphocytes % 1.6 % (21.2-54.2); Mean Corpuscular HGB Conc 31.1 GM/DL (32-36); Mean Corpuscular Hemoglobin 23 PG (27-34); Mean Corpuscular Volume 74.8 FL (87-102); Mean Platelet Volume 12.2 FL (9.6-12.0); Monocytes # 0.7 10*3/uL (0.11-0.8); Monocytes % 3.8 % (1.7-12.7); Neutrophils # 17.9 10*3/uL (1.4-7.4); Neutrophils % 93.5 % (38.7-73.9); Platelet Count 250 T/CUMM (130-400); Red Blood Count 3.61 MC/CUMM (3.8-5.5); Red Cell Distribution Width 18.4 % (9.3-17.3); White Blood Count 19.2 T/CUMM (4-12)
[2017-07-29 06:48] LABS: Calcium 8.3 MG/DL (8.5-10.1); Magnesium 2.2 MG/DL (1.8-2.4); Osmolality,Calculated 276.8 MOS/KG (273-304); Potassium 4.1 MMOL/L (3.5-5.1)
[2017-07-29 08:07] LABS: Giant Platelets Few; Hypochromasia 1+; Lymphocytes 1 % (20-55); Microcytosis Slight; Platelet Estimate Adequate; Segmented Neutrophils 98 % (50-85); Total Cells Counted 100
[2017-07-29] MEDS: POTASSIUM CHLORIDE 10 MEQ TABLET PO SCH (09:19)
[2017-07-29] MEDS: ALFUZOSIN 10 MG TABLET PO SCH (09:19)
[2017-07-29] MEDS: METOPROLOL TARTRATE 25 MG TABLET PO SCH ×2 (09:19→21:30)
[2017-07-29] MEDS: CALCIUM (CITRATE)/VITAMIN D 200 MG-125 UNIT TABLET PO SCH (09:19)
[2017-07-29] MEDS: GABAPENTIN 400 MG CAPSULE PO SCH (09:19)
[2017-07-29] MEDS: ASPIRIN 325 MG TABLET PO SCH (09:19)
[2017-07-29] MEDS: AMIODARONE 200 MG TABLET PO SCH ×2 (09:19→21:30)
[2017-07-29] MEDS: ALPRAZolam 0.5 MG TABLET PO SCH ×3 (09:19→21:30)
[2017-07-29] MEDS: ZINC OXIDE PASTE 113 GM TUBE TOP SCH ×2 (09:20→21:29)
[2017-07-29] MEDS: methylPREDNISolone SOD SUC 40 MG/1 ML VIAL IV SCH ×2 (09:20→21:29)
[2017-07-29] MEDS: PANTOPRAZOLE 40 MG VIAL IV SCH ×2 (09:20→21:40)
[2017-07-29] MEDS: FUROSEMIDE 40 MG TABLET PO SCH (09:22)
[2017-07-29] MEDS: SERTRALINE 100 MG TABLET PO SCH (21:30)
[2017-07-29] MEDS: ENOXAPARIN 40 MG/0.4 ML SYRINGE SUBCUT SCH (21:31)
[2017-07-29] MEDS: traZODone 50 MG TABLET PO SCH (21:40)
[2017-07-29] MEDS: CEFEPIME 2,000 MG in SYRINGE 1 EACH IV SCH (21:43)
[2017-07-30] MEDS: ALBUTEROL/IPRATROPIUM 3 ML NEB RESP TX SCH ×4 (01:06→19:59)
[2017-07-30] MEDS: CEFEPIME 2,000 MG in SYRINGE 1 EACH IV SCH ×3 (05:47→22:38)
[2017-07-30 06:19] LABS: Basophils % 0.1 % (0.0-0.8); Hematocrit 26.7 VOL% (42.0-52.0); Hemoglobin 8.1 GM/DL (14.0-18.0); Immature Granulocytes Absolute 0.18 #; Lymphocytes # 0.3 10*3/uL (1.4-4.0); Lymphocytes % 1.5 % (21.2-54.2); Mean Corpuscular HGB Conc 30.3 GM/DL (32-36); Mean Corpuscular Hemoglobin 23 PG (27-34); Mean Corpuscular Volume 75.2 FL (87-102); Mean Platelet Volume 11.8 FL (9.6-12.0); Monocytes # 0.6 10*3/uL (0.11-0.8); Monocytes % 3.5 % (1.7-12.7); Neutrophils # 16.7 10*3/uL (1.4-7.4); Neutrophils % 93.9 % (38.7-73.9); Platelet Count 241 T/CUMM (130-400); Red Blood Count 3.55 MC/CUMM (3.8-5.5); Red Cell Distribution Width 18.6 % (9.3-17.3); White Blood Count 17.8 T/CUMM (4-12)
[2017-07-30 06:55] LABS: Calcium 8.6 MG/DL (8.5-10.1); Magnesium 2.2 MG/DL (1.8-2.4); Osmolality,Calculated 280.5 MOS/KG (273-304); Potassium 4.1 MMOL/L (3.5-5.1)
[2017-07-30 07:18] LABS: Giant Platelets Few; Hypochromasia 2+; Lymphocytes 1 % (20-55); Platelet Estimate Adequate; Segmented Neutrophils 94 % (50-85); Total Cells Counted 100
[2017-07-30 07:19] LABS: Microcytosis Slight
[2017-07-30] MEDS: PANTOPRAZOLE 40 MG VIAL IV SCH ×2 (10:09→22:35)
[2017-07-30] MEDS: CALCIUM (CITRATE)/VITAMIN D 200 MG-125 UNIT TABLET PO SCH (10:12)
[2017-07-30] MEDS: ASPIRIN 325 MG TABLET PO SCH (10:12)
[2017-07-30] MEDS: ALFUZOSIN 10 MG TABLET PO SCH (10:13)
[2017-07-30] MEDS: METOPROLOL TARTRATE 25 MG TABLET PO SCH ×2 (10:13→22:35)
[2017-07-30] MEDS: GABAPENTIN 400 MG CAPSULE PO SCH (10:13)
[2017-07-30] MEDS: FUROSEMIDE 40 MG TABLET PO SCH (10:13)
[2017-07-30] MEDS: POTASSIUM CHLORIDE 10 MEQ TABLET PO SCH (10:14)
[2017-07-30] MEDS: AMIODARONE 200 MG TABLET PO SCH ×2 (10:14→22:36)
[2017-07-30] MEDS: ZINC OXIDE PASTE 113 GM TUBE TOP SCH ×2 (10:16→22:36)
[2017-07-30] MEDS: ALPRAZolam 0.5 MG TABLET PO SCH ×3 (10:21→22:35)
[2017-07-30] MEDS: methylPREDNISolone SOD SUC 40 MG/1 ML VIAL IV SCH (13:16)
[2017-07-30] MEDS: predniSONE 20 MG TABLET PO SCH (13:42)
[2017-07-30] MEDS ORDERED: DILTIAZEM INJ 100 MG in SODIUM CHLORIDE 0.9% 100 ML IV SCH (16:00)
[2017-07-30] MEDS: DILTIAZEM 60 MG TABLET PO SCH (22:33)
[2017-07-30] MEDS: ENOXAPARIN 40 MG/0.4 ML SYRINGE SUBCUT SCH (22:34)
[2017-07-30] MEDS: SERTRALINE 100 MG TABLET PO SCH (22:34)
[2017-07-30] MEDS: traZODone 50 MG TABLET PO SCH (22:35)
[2017-07-31] MEDS: ALBUTEROL/IPRATROPIUM 3 ML NEB RESP TX SCH ×2 (01:00→07:10)
[2017-07-31 05:19] LABS: Basophils % 0.1 % (0.0-0.8); Eosinophils % 0.2 % (0.00-10.9); Hematocrit 24.5 VOL% (42.0-52.0); Hemoglobin 7.5 GM/DL (14.0-18.0); Immature Granulocytes % 1.1 %; Lymphocytes # 1.1 10*3/uL (1.4-4.0); Lymphocytes % 6.2 % (21.2-54.2); Mean Corpuscular HGB Conc 30.6 GM/DL (32-36); Mean Corpuscular Hemoglobin 23 PG (27-34); Mean Corpuscular Volume 75.9 FL (87-102); Mean Platelet Volume 11.7 FL (9.6-12.0); Monocytes # 1.2 10*3/uL (0.11-0.8); Neutrophils # 14.9 10*3/uL (1.4-7.4); Neutrophils % 85.4 % (38.7-73.9); Platelet Count 243 T/CUMM (130-400); Red Blood Count 3.23 MC/CUMM (3.8-5.5); Red Cell Distribution Width 19.1 % (9.3-17.3); White Blood Count 17.4 T/CUMM (4-12)
[2017-07-31] MEDS: CEFEPIME 2,000 MG in SYRINGE 1 EACH IV SCH ×2 (05:30→14:06)
[2017-07-31 05:48] LABS: Calcium 8.1 MG/DL (8.5-10.1); Magnesium 1.9 MG/DL (1.8-2.4); Osmolality,Calculated 279.5 MOS/KG (273-304)
[2017-07-31] MEDS: POTASSIUM CHLORIDE 10 MEQ TABLET PO SCH (10:30)
[2017-07-31] MEDS: METOPROLOL TARTRATE 25 MG TABLET PO SCH (10:30)
[2017-07-31] MEDS: GABAPENTIN 400 MG CAPSULE PO SCH (10:33)
[2017-07-31] MEDS: predniSONE 20 MG TABLET PO SCH (10:33)
[2017-07-31] MEDS: DILTIAZEM 60 MG TABLET PO SCH ×2 (10:34→14:46)
[2017-07-31] MEDS: CALCIUM (CITRATE)/VITAMIN D 200 MG-125 UNIT TABLET PO SCH (10:35)
[2017-07-31] MEDS: AMIODARONE 200 MG TABLET PO SCH (10:35)
[2017-07-31] MEDS: FUROSEMIDE 40 MG TABLET PO SCH (10:35)
[2017-07-31] MEDS: ALFUZOSIN 10 MG TABLET PO SCH (10:35)
[2017-07-31] MEDS: ALPRAZolam 0.5 MG TABLET PO SCH (10:35)
[2017-07-31] MEDS: ASPIRIN 325 MG TABLET PO SCH (10:35)
[2017-07-31] MEDS: PANTOPRAZOLE 40 MG VIAL IV SCH (10:36)
[2017-07-31] MEDS: ZINC OXIDE PASTE 113 GM TUBE TOP SCH (10:36)
[2017-07-31 12:23] VITALS: BP 96/47
== END 2017-07-31 14:53 | disposition home health service (06) | DRG 166 ==
LOC: SUATTDRO 19:46 → N.CC 19:46 → N.TELES 07-27 14:16
PROVIDERS: ADMIT Internal Medicine; ATTEND Internal Medicine

== ENCOUNTER 2017-08-04 14:30 | Inpatient (IN) ==
[2017-08-04 15:03] LABS: Basophils % 0.1 % (0.0-0.8); Eosinophils % 0.1 % (0.00-10.9); Hematocrit 26.5 VOL% (42.0-52.0); Hemoglobin 8.1 GM/DL (14.0-18.0); Immature Granulocytes % 0.8 %; Immature Granulocytes Absolute 0.13 #; Lymphocytes # 0.7 10*3/uL (1.4-4.0); Lymphocytes % 4.6 % (21.2-54.2); Mean Corpuscular HGB Conc 30.6 GM/DL (32-36); Mean Corpuscular Hemoglobin 23 PG (27-34); Mean Corpuscular Volume 76.4 FL (87-102); Mean Platelet Volume 11.1 FL (9.6-12.0); Monocytes # 0.6 10*3/uL (0.11-0.8); NRBC # 0.06 10*3/uL; Neutrophils # 14.2 10*3/uL (1.4-7.4); Neutrophils % 90.4 % (38.7-73.9); Platelet Count 211 T/CUMM (130-400); Red Blood Count 3.47 MC/CUMM (3.8-5.5); Red Cell Distribution Width 20.5 % (9.3-17.3); White Blood Count 15.7 T/CUMM (4-12)
[2017-08-04] MEDS ORDERED: ALBUTEROL/IPRATROPIUM 3 ML NEB RESP TX STA ×2 (15:04→15:28)
[2017-08-04 15:24] LABS: Lactic Acid 1.4 MMOL/L (0.4-2.0)
[2017-08-04] MEDS ORDERED: cefTRIAXone 1,000 MG in SODIUM CHLORIDE 0.9% 100 ML IV STA (15:25)
[2017-08-04 15:26] LABS: Alanine Aminotransferase 766 U/L (16-61); Alkaline Phosphatase 77 U/L (45-117); Aspartate Amino Transferase 526 U/L (0-37); Bilirubin,Total < 0.39 MG/DL (0.2-1.0); Blood Urea Nitrogen 36 MG/DL (7-18); Calcium 8.2 MG/DL (8.5-10.1); Glucose 118 MG/DL (74-106); Osmolality,Calculated 285.5 MOS/KG (273-304); Potassium 4.5 MMOL/L (3.5-5.1); Sodium 139 MMOL/L (136-145); Total Protein 5.9 G/DL (6.4-8.3)
[2017-08-04 15:30] LABS: Troponin I Only 0.599 NG/ML (0.00-0.045)
[2017-08-04] MEDS ORDERED: cefTRIAXone 1,000 MG VIAL ONE (16:19)
[2017-08-04] MEDS ORDERED: VECURONIUM 10 MG VIAL IV ONE (16:20)
[2017-08-04] MEDS ORDERED: SODIUM CHLORIDE 0.9% 1,000 ML IV STA (16:29)
[2017-08-04] MEDS ORDERED: ETOMIDATE 20 MG/10 ML VIAL IV STA (16:40)
[2017-08-04] MEDS ORDERED: SUCCINYLCHOLINE 200 MG/10 ML VIAL IV STA (16:40)
[2017-08-04] MEDS ORDERED: VECURONIUM 10 MG VIAL IV STA (16:45)
[2017-08-04] MEDS ORDERED: ETOMIDATE 20 MG/10 ML VIAL IV ONE (17:04)
[2017-08-04] MEDS ORDERED: SUCCINYLCHOLINE 200 MG/10 ML VIAL ONE (17:04)
[2017-08-04 17:55] LABS: ABG Base Excess 8.5 MMOL/L (-2.5-2.5); ABG HCO3 34.9 MMOL/L (20-26); ABG Oxygen Saturation 97.3 % (95-100); ABG PCO2 61.3 MM HG (35-48); ABG PH 7.373 (7.35-7.45); ABG PO2 113.4 MM HG (80-95); ABG TCO2 36.8 MMOL/L (23-27)
[2017-08-04] MEDS ORDERED: ALBUTEROL 2.5 MG/3 ML NEB RESP TX PRN (18:10)
[2017-08-04] MEDS ORDERED: ONDANSETRON 4 MG/2 ML VIAL IV PRN (18:10)
[2017-08-04] MEDS ORDERED: ACETAMINOPHEN 325 MG TABLET PO PRN (18:10)
[2017-08-04] MEDS: DEXTROSE 5% NACL 0.9% 1,000 ML IV SCH (18:19)
[2017-08-04] MEDS: PROPOFOL 1,000 MG/100 ML BOTTLE IV SCH (18:19)
[2017-08-04] MEDS ORDERED: methylPREDNISolone SOD SUC 40 MG/1 ML VIAL IV SCH (18:30)
[2017-08-04] MEDS: PIPERACILLIN/TAZOBACTAM 3,375 MG in SODIUM CHLORIDE 0.9% 100 ML IV SCH (18:40)
[2017-08-04] MEDS: NOREPINEPHRINE 8 MG in SODIUM CHLORIDE 0.9% 242 ML IV SCH (19:05)
[2017-08-04 19:21] LABS: Apearance,Urine CLEAR (Clear); Bilirubin,Urine Negative (Negative); Blood, Urine Negative (Negative); Glucose,Urine (UA) Negative (Negative); Hyaline Casts,Urine 1 /LPF (0-3); Ketones,Urine Negative (Negative); Nitrite,Urine Negative (Negative); Protein,Urine 30 MG/DL; RBC,Urine 4 /HPF (0-4); Squamous Epithelial Cell,Urine Occasional /HPF (0-10); Urine Color Yellow (Yellow); WBC,Urine 2 /HPF (0-6)
[2017-08-04] MEDS: ALBUTEROL/IPRATROPIUM 3 ML NEB RESP TX SCH (19:26)
[2017-08-04 19:44] LABS: ABG Base Excess 9.1 MMOL/L (-2.5-2.5); ABG HCO3 32.6 MMOL/L (20-26); ABG Oxygen Saturation 98.2 % (95-100); ABG PH 7.529 (7.35-7.45); ABG PO2 116.9 MM HG (80-95); ABG TCO2 33.8 MMOL/L (23-27); Allen Test Positive; Pt O2 Delivery Device Ventilator
[2017-08-04 20:35] LABS: Lymphocytes 5 % (20-55); Platelet Estimate Normal; Segmented Neutrophils 92 % (50-85); Total Cells Counted 100
[2017-08-04 20:38] LABS: Hypochromasia 2+; Poikilocytosis 2+; Polychromasia Slight
[2017-08-04 20:51] LABS: Hematocrit 24.5 VOL% (42.0-52.0); Hemoglobin 7.6 GM/DL (14.0-18.0)
[2017-08-04] MEDS: ENOXAPARIN 40 MG/0.4 ML SYRINGE SUBCUT SCH (21:11)
[2017-08-04] MEDS: methylPREDNISolone SOD SUC 40 MG/1 ML VIAL IV SCH (21:15)
[2017-08-04] MEDS: VANCOMYCIN INJ 750 MG in SODIUM CHLORIDE 0.9% 150 ML IV SCH (21:41)
[2017-08-05] MEDS: ALBUTEROL/IPRATROPIUM 3 ML NEB RESP TX SCH ×7 (00:04→23:38)
[2017-08-05] MEDS: PIPERACILLIN/TAZOBACTAM 3,375 MG in SODIUM CHLORIDE 0.9% 100 ML IV SCH ×3 (02:14→19:15)
[2017-08-05 03:57] LABS: ABG Base Excess 7.8 MMOL/L (-2.5-2.5); ABG Oxygen Saturation 97.7 % (95-100); ABG PCO2 50.6 MM HG (35-48); ABG PH 7.432 (7.35-7.45); ABG PO2 111.5 MM HG (80-95); ABG TCO2 34.5 MMOL/L (23-27); Allen Test Positive; Pt O2 Delivery Device Ventilator
[2017-08-05] MEDS: DEXTROSE 5% NACL 0.9% 1,000 ML IV SCH ×3 (04:21→18:02)
[2017-08-05] MEDS: PROPOFOL 1,000 MG/100 ML BOTTLE IV SCH ×2 (05:40→19:11)
[2017-08-05 05:43] LABS: Basophils % 0.1 % (0.0-0.8); Hematocrit 25.5 VOL% (42.0-52.0); Hemoglobin 7.7 GM/DL (14.0-18.0); Immature Granulocytes % 1.2 %; Immature Granulocytes Absolute 0.18 #; Lymphocytes # 0.2 10*3/uL (1.4-4.0); Lymphocytes % 1.5 % (21.2-54.2); Mean Corpuscular HGB Conc 30.2 GM/DL (32-36); Mean Corpuscular Hemoglobin 23 PG (27-34); Mean Corpuscular Volume 76.3 FL (87-102); Mean Platelet Volume 10.8 FL (9.6-12.0); Monocytes # 0.1 10*3/uL (0.11-0.8); Monocytes % 0.9 % (1.7-12.7); Neutrophils # 14.3 10*3/uL (1.4-7.4); Neutrophils % 96.3 % (38.7-73.9); Platelet Count 170 T/CUMM (130-400); Red Blood Count 3.34 MC/CUMM (3.8-5.5); Red Cell Distribution Width 20.6 % (9.3-17.3); White Blood Count 14.9 T/CUMM (4-12)
[2017-08-05 06:24] LABS: Calcium 7.4 MG/DL (8.5-10.1); Osmolality,Calculated 290.1 MOS/KG (273-304); Risk Ratio 2.18; VLDL CHOLESTEROL 12.4 MG/DL
[2017-08-05 06:25] LABS: Troponin I Only 0.839 NG/ML (0.00-0.045)
[2017-08-05 08:14] LABS: Anisocytosis 1+; Lymphocytes 5 % (20-55); Microcytosis 1+; Nucleated Red Blood Cells 1 (0-5); Platelet Estimate Normal; Segmented Neutrophils 95 % (50-85); Total Cells Counted 100
[2017-08-05] MEDS: methylPREDNISolone SOD SUC 40 MG/1 ML VIAL IV SCH ×2 (08:29→20:46)
[2017-08-05] MEDS: PANTOPRAZOLE 40 MG VIAL IV SCH (08:30)
[2017-08-05] MEDS ORDERED: PANTOPRAZOLE 40 MG TABLET PO SCH (09:00)
[2017-08-05] MEDS ORDERED: GLUCAGON 1 MG VIAL IM PRN (09:52)
[2017-08-05] MEDS ORDERED: DEXTROSE 50% 25 GM/50 ML VIAL IV PRN (09:52)
[2017-08-05] MEDS: VANCOMYCIN INJ 750 MG in SODIUM CHLORIDE 0.9% 150 ML IV SCH ×2 (10:29→21:15)
[2017-08-05] MEDS: INSULIN REGULAR 100 UNIT/ML SUBCUT SCH ×3 (13:37→23:39)
[2017-08-05] MEDS: NOREPINEPHRINE 8 MG in SODIUM CHLORIDE 0.9% 242 ML IV SCH (19:12)
[2017-08-05] MEDS: ENOXAPARIN 40 MG/0.4 ML SYRINGE SUBCUT SCH (20:46)
[2017-08-06] MEDS: NOREPINEPHRINE 8 MG in SODIUM CHLORIDE 0.9% 242 ML IV SCH ×2 (00:35→20:05)
[2017-08-06] MEDS: DEXTROSE 5% NACL 0.9% 1,000 ML IV SCH ×5 (01:13→21:26)
[2017-08-06] MEDS: PIPERACILLIN/TAZOBACTAM 3,375 MG in SODIUM CHLORIDE 0.9% 100 ML IV SCH ×5 (02:50→21:27)
[2017-08-06] MEDS: PROPOFOL 1,000 MG/100 ML BOTTLE IV SCH ×3 (03:30→19:50)
[2017-08-06 03:50] LABS: ABG Base Excess 2.7 MMOL/L (-2.5-2.5); ABG HCO3 26.8 MMOL/L (20-26); ABG Oxygen Saturation 99.1 % (95-100); ABG PCO2 51.8 MM HG (35-48); ABG PH 7.354 (7.35-7.45); Allen Test Positive; Pt O2 Delivery Device Ventilator
[2017-08-06] MEDS: ALBUTEROL/IPRATROPIUM 3 ML NEB RESP TX SCH ×6 (04:27→23:12)
[2017-08-06] MEDS: INSULIN REGULAR 100 UNIT/ML SUBCUT SCH ×3 (05:07→18:17)
[2017-08-06 05:14] LABS: Calcium 7.6 MG/DL (8.5-10.1); Osmolality,Calculated 295.7 MOS/KG (273-304); Potassium 3.7 MMOL/L (3.5-5.1)
[2017-08-06] MEDS: PANTOPRAZOLE 40 MG VIAL IV SCH (09:16)
[2017-08-06] MEDS: MULTIVITAMIN LIQUID (CENTRUM) 60 ML BOTTLE PER TUBE SCH (09:16)
[2017-08-06] MEDS: methylPREDNISolone SOD SUC 40 MG/1 ML VIAL IV SCH ×2 (09:17→21:25)
[2017-08-06] MEDS: VANCOMYCIN INJ 750 MG in SODIUM CHLORIDE 0.9% 150 ML IV SCH ×2 (10:08→23:09)
[2017-08-06 12:33] LABS: Basophils % 0.1 % (0.0-0.8); Hematocrit 23.9 VOL% (42.0-52.0); Hemoglobin 7.1 GM/DL (14.0-18.0); Immature Granulocytes % 0.7 %; Lymphocytes # 0.3 10*3/uL (1.4-4.0); Mean Corpuscular HGB Conc 29.7 GM/DL (32-36); Mean Corpuscular Hemoglobin 23 PG (27-34); Mean Corpuscular Volume 78.6 FL (87-102); Mean Platelet Volume 11.1 FL (9.6-12.0); Monocytes # 0.4 10*3/uL (0.11-0.8); Monocytes % 2.8 % (1.7-12.7); NRBC # 0.03 10*3/uL; Neutrophils # 13.4 10*3/uL (1.4-7.4); Neutrophils % 94.4 % (38.7-73.9); Platelet Count 134 T/CUMM (130-400); Red Blood Count 3.04 MC/CUMM (3.8-5.5); Red Cell Distribution Width 20.9 % (9.3-17.3); White Blood Count 14.1 T/CUMM (4-12)
[2017-08-06 13:29] LABS: Hypochromasia 2+; Lymphocytes 2 % (20-55); Macrocytosis 1+; Platelet Estimate Decreased; Polychromasia Slight; Segmented Neutrophils 97 % (50-85); Target Cells Slight; Total Cells Counted 100
[2017-08-06 18:25] LABS: Alanine Aminotransferase 368 U/L (16-61); Albumin 1.8 G/DL (3.4-5.0); Alkaline Phosphatase 79 U/L (45-117); Aspartate Amino Transferase 52 U/L (0-37); Bilirubin,Direct < 0.100 MG/DL (0.0-0.20); Bilirubin,Indirect 0.3 MG/DL (0.0-1.0); Bilirubin,Total < 0.39 MG/DL (0.2-1.0); Total Protein 5.1 G/DL (6.4-8.3)
[2017-08-06] MEDS ORDERED: SODIUM CHLORIDE 0.9% 1,000 ML IV PRN ×2 (18:48→18:58)
[2017-08-06] MEDS: ENOXAPARIN 40 MG/0.4 ML SYRINGE SUBCUT SCH (21:25)
[2017-08-07] MEDS: INSULIN REGULAR 100 UNIT/ML SUBCUT SCH ×4 (01:40→18:39)
[2017-08-07] MEDS: PROPOFOL 1,000 MG/100 ML BOTTLE IV SCH ×4 (02:32→21:38)
[2017-08-07] MEDS: ALBUTEROL/IPRATROPIUM 3 ML NEB RESP TX SCH ×6 (03:10→23:40)
[2017-08-07 04:19] LABS: Allen Test Positive; Pt O2 Delivery Device Ventilator
[2017-08-07 04:25] LABS: ABG Base Excess 3.1 MMOL/L (-2.5-2.5); ABG HCO3 27.1 MMOL/L (20-26); ABG Oxygen Saturation 93.9 % (95-100); ABG PH 7.384 (7.35-7.45); ABG TCO2 26.7 MMOL/L (23-27)
[2017-08-07 05:17] LABS: Basophils % 0.1 % (0.0-0.8); Hemoglobin 8.6 GM/DL (14.0-18.0); Immature Granulocytes % 0.6 %; Immature Granulocytes Absolute 0.08 #; Lymphocytes # 0.3 10*3/uL (1.4-4.0); Lymphocytes % 2.4 % (21.2-54.2); Mean Corpuscular HGB Conc 29.7 GM/DL (32-36); Mean Corpuscular Hemoglobin 24 PG (27-34); Mean Corpuscular Volume 79.2 FL (87-102); Monocytes # 0.3 10*3/uL (0.11-0.8); NRBC # 0.03 10*3/uL; Neutrophils # 13.2 10*3/uL (1.4-7.4); Neutrophils % 94.9 % (38.7-73.9); Platelet Count 106 T/CUMM (130-400); Red Blood Count 3.66 MC/CUMM (3.8-5.5); White Blood Count 13.9 T/CUMM (4-12)
[2017-08-07 05:38] LABS: Hypochromasia 1+; Lymphocytes 2 % (20-55); Platelet Estimate Decreased; Segmented Neutrophils 96 % (50-85); Total Cells Counted 100
[2017-08-07 05:39] LABS: Giant Platelets Few; Microcytosis Slight; Ovalocytes Slight
[2017-08-07 05:51] LABS: Albumin 1.8 G/DL (3.4-5.0); Bilirubin,Direct 0.16 MG/DL (0.0-0.20); Bilirubin,Indirect 0.3 MG/DL (0.0-1.0); Bilirubin,Total 0.5 MG/DL (0.2-1.0); Total Protein 5.3 G/DL (6.4-8.3)
[2017-08-07 05:56] LABS: Calcium 7.8 MG/DL (8.5-10.1); Magnesium 2.4 MG/DL (1.8-2.4); Osmolality,Calculated 293.6 MOS/KG (273-304); Potassium 3.8 MMOL/L (3.5-5.1); Prealbumin 16.2 MG/DL (20-40)
[2017-08-07] MEDS: PIPERACILLIN/TAZOBACTAM 3,375 MG in SODIUM CHLORIDE 0.9% 100 ML IV SCH ×3 (06:06→21:25)
[2017-08-07] MEDS: DEXTROSE 5% NACL 0.9% 1,000 ML IV SCH ×3 (06:07→19:23)
[2017-08-07] MEDS: PANTOPRAZOLE 40 MG VIAL IV SCH (09:02)
[2017-08-07] MEDS: methylPREDNISolone SOD SUC 40 MG/1 ML VIAL IV SCH ×2 (09:03→20:38)
[2017-08-07] MEDS: MULTIVITAMIN LIQUID (CENTRUM) 60 ML BOTTLE PER TUBE SCH (09:04)
[2017-08-07] MEDS: VANCOMYCIN INJ 750 MG in SODIUM CHLORIDE 0.9% 150 ML IV SCH (10:39)
[2017-08-07] MEDS ORDERED: AMIODARONE INJ 150 MG in DEXTROSE 5% 100 ML IV ONE (14:35)
[2017-08-07] MEDS ORDERED: AMIODARONE INJ 450 MG in DEXTROSE 5% 241 ML IV SCH (14:36)
[2017-08-07] MEDS: ZINC OXIDE PASTE 113 GM TUBE TOP SCH ×2 (15:10→21:16)
[2017-08-07] MEDS: NOREPINEPHRINE 8 MG in SODIUM CHLORIDE 0.9% 242 ML IV SCH (19:22)
[2017-08-07] MEDS: ENOXAPARIN 40 MG/0.4 ML SYRINGE SUBCUT SCH (20:38)
[2017-08-07] MEDS: VANCOMYCIN INJ 1,000 MG in SODIUM CHLORIDE 0.9% 250 ML IV SCH (22:34)
[2017-08-07] MEDS: AMIODARONE INJ 450 MG in DEXTROSE 5% 241 ML IV SCH (22:35)
[2017-08-08] MEDS: INSULIN REGULAR 100 UNIT/ML SUBCUT SCH ×5 (01:15→23:29)
[2017-08-08] MEDS: ALBUTEROL/IPRATROPIUM 3 ML NEB RESP TX SCH ×7 (03:01→23:05)
[2017-08-08 03:51] LABS: ABG Base Excess 3.2 MMOL/L (-2.5-2.5); ABG HCO3 28.7 MMOL/L (20-26); ABG Oxygen Saturation 92.9 % (95-100); ABG PCO2 48.2 MM HG (35-48); ABG PH 7.392 (7.35-7.45); ABG PO2 66.8 MM HG (80-95); ABG TCO2 30.1 MMOL/L (23-27)
[2017-08-08 04:50] LABS: Hematocrit 27.6 VOL% (42.0-52.0); Hemoglobin 8.2 GM/DL (14.0-18.0); Immature Granulocytes % 0.8 %; Immature Granulocytes Absolute 0.11 #; Lymphocytes # 0.3 10*3/uL (1.4-4.0); Lymphocytes % 1.8 % (21.2-54.2); Mean Corpuscular HGB Conc 29.7 GM/DL (32-36); Mean Corpuscular Hemoglobin 23 PG (27-34); Mean Corpuscular Volume 78.9 FL (87-102); Monocytes # 0.3 10*3/uL (0.11-0.8); Monocytes % 1.9 % (1.7-12.7); NRBC # 0.04 10*3/uL; Neutrophils % 95.5 % (38.7-73.9); Platelet Count 114 T/CUMM (130-400); Red Cell Distribution Width 20.9 % (9.3-17.3); White Blood Count 14.7 T/CUMM (4-12)
[2017-08-08 05:11] LABS: Calcium 7.8 MG/DL (8.5-10.1); Magnesium 2.3 MG/DL (1.8-2.4); Osmolality,Calculated 291.7 MOS/KG (273-304); Potassium 3.9 MMOL/L (3.5-5.1)
[2017-08-08 05:38] LABS: Myelocytes 1 %; Platelet Estimate Adequate; Segmented Neutrophils 99 % (50-85); Total Cells Counted 100
[2017-08-08] MEDS: PIPERACILLIN/TAZOBACTAM 3,375 MG in SODIUM CHLORIDE 0.9% 100 ML IV SCH ×3 (05:52→21:42)
[2017-08-08] MEDS: DEXTROSE 5% NACL 0.9% 1,000 ML IV SCH (06:02)
[2017-08-08] MEDS: PROPOFOL 1,000 MG/100 ML BOTTLE IV SCH ×4 (06:05→23:14)
[2017-08-08] MEDS: PANTOPRAZOLE 40 MG VIAL IV SCH (08:40)
[2017-08-08] MEDS: MULTIVITAMIN LIQUID (CENTRUM) 60 ML BOTTLE PER TUBE SCH (08:41)
[2017-08-08] MEDS: ZINC OXIDE PASTE 113 GM TUBE TOP SCH ×2 (08:41→20:42)
[2017-08-08] MEDS: methylPREDNISolone SOD SUC 40 MG/1 ML VIAL IV SCH ×2 (08:41→20:41)
[2017-08-08] MEDS ORDERED: AMIODARONE 200 MG TABLET PO SCH (09:00)
[2017-08-08] MEDS: VANCOMYCIN INJ 1,000 MG in SODIUM CHLORIDE 0.9% 250 ML IV SCH ×2 (10:28→23:19)
[2017-08-08] MEDS ORDERED: FUROSEMIDE 40 MG/4 ML VIAL IV ONE (12:30)
[2017-08-08] MEDS: AMIODARONE INJ 450 MG in DEXTROSE 5% 241 ML IV SCH (14:17)
[2017-08-08] MEDS ORDERED: METOPROLOL TARTRATE 5 MG/5 ML VIAL IV ONE (19:18)
[2017-08-08] MEDS: NOREPINEPHRINE 8 MG in SODIUM CHLORIDE 0.9% 242 ML IV SCH (19:31)
[2017-08-08] MEDS: fentaNYL INJ 1,250 MCG in SODIUM CHLORIDE 0.9% 225 ML IV SCH (20:04)
[2017-08-08] MEDS: ENOXAPARIN 40 MG/0.4 ML SYRINGE SUBCUT SCH (20:41)
[2017-08-08] MEDS ORDERED: NOREPINEPHRINE 4 MG/4 ML VIAL IV ONE (21:00)
[2017-08-09 03:18] LABS: ABG Base Excess 8.7 MMOL/L (-2.5-2.5); ABG HCO3 34.6 MMOL/L (20-26); ABG Oxygen Saturation 94.6 % (95-100); ABG PCO2 55.8 MM HG (35-48); ABG TCO2 36.3 MMOL/L (23-27)
[2017-08-09] MEDS: ALBUTEROL/IPRATROPIUM 3 ML NEB RESP TX SCH ×5 (03:22→20:03)
[2017-08-09] MEDS: PROPOFOL 1,000 MG/100 ML BOTTLE IV SCH ×4 (05:16→21:04)
[2017-08-09 05:25] LABS: Basophils % 0.1 % (0.0-0.8); Hematocrit 29.7 VOL% (42.0-52.0); Immature Granulocytes % 0.4 %; Immature Granulocytes Absolute 0.06 #; Lymphocytes # 0.3 10*3/uL (1.4-4.0); Lymphocytes % 2.4 % (21.2-54.2); Mean Corpuscular HGB Conc 30.3 GM/DL (32-36); Mean Corpuscular Hemoglobin 24 PG (27-34); Mean Corpuscular Volume 77.7 FL (87-102); Mean Platelet Volume 10.8 FL (9.6-12.0); Monocytes # 0.2 10*3/uL (0.11-0.8); Monocytes % 1.7 % (1.7-12.7); NRBC # 0.03 10*3/uL; Neutrophils # 13.2 10*3/uL (1.4-7.4); Neutrophils % 95.4 % (38.7-73.9); Platelet Count 92 T/CUMM (130-400); Red Blood Count 3.82 MC/CUMM (3.8-5.5); Red Cell Distribution Width 20.9 % (9.3-17.3); White Blood Count 13.8 T/CUMM (4-12)
[2017-08-09 06:02] LABS: Giant Platelets Few; Hypochromasia 1+; Lymphocytes 1 % (20-55); Ovalocytes Slight; Platelet Estimate Decreased; Segmented Neutrophils 97 % (50-85); Total Cells Counted 100
[2017-08-09 06:03] LABS: Microcytosis Slight
[2017-08-09 06:19] LABS: Calcium 7.8 MG/DL (8.5-10.1); Magnesium 2.1 MG/DL (1.8-2.4); Osmolality,Calculated 284.3 MOS/KG (273-304)
[2017-08-09] MEDS: NOREPINEPHRINE 8 MG in SODIUM CHLORIDE 0.9% 242 ML IV SCH ×2 (06:21→21:02)
[2017-08-09] MEDS: AMIODARONE INJ 450 MG in DEXTROSE 5% 241 ML IV SCH ×3 (06:22→18:12)
[2017-08-09] MEDS: INSULIN REGULAR 100 UNIT/ML SUBCUT SCH ×3 (06:22→18:14)
[2017-08-09] MEDS: PIPERACILLIN/TAZOBACTAM 3,375 MG in SODIUM CHLORIDE 0.9% 100 ML IV SCH ×3 (06:26→21:19)
[2017-08-09] MEDS ORDERED: AMIODARONE INJ 150 MG in DEXTROSE 5% 100 ML IV ONE (07:03)
[2017-08-09] MEDS ORDERED: AMIODARONE INJ 450 MG in DEXTROSE 5% 241 ML IV SCH (07:30)
[2017-08-09] MEDS: methylPREDNISolone SOD SUC 40 MG/1 ML VIAL IV SCH ×2 (09:00→21:18)
[2017-08-09] MEDS: PANTOPRAZOLE 40 MG VIAL IV SCH (09:15)
[2017-08-09] MEDS: ZINC OXIDE PASTE 113 GM TUBE TOP SCH (09:49)
[2017-08-09] MEDS: MULTIVITAMIN LIQUID (CENTRUM) 60 ML BOTTLE PER TUBE SCH (09:49)
[2017-08-09] MEDS: VANCOMYCIN INJ 1,000 MG in SODIUM CHLORIDE 0.9% 250 ML IV SCH ×2 (11:12→21:19)
[2017-08-09] MEDS: fentaNYL INJ 1,250 MCG in SODIUM CHLORIDE 0.9% 225 ML IV SCH ×2 (12:00→20:01)
[2017-08-09] MEDS: ENOXAPARIN 40 MG/0.4 ML SYRINGE SUBCUT SCH (21:18)
[2017-08-10] MEDS: INSULIN REGULAR 100 UNIT/ML SUBCUT SCH ×4 (00:37→18:00)
[2017-08-10] MEDS: PROPOFOL 1,000 MG/100 ML BOTTLE IV SCH ×3 (00:46→18:09)
[2017-08-10] MEDS: AMIODARONE INJ 450 MG in DEXTROSE 5% 241 ML IV SCH ×3 (00:50→09:41)
[2017-08-10] MEDS: ZINC OXIDE PASTE 113 GM TUBE TOP SCH ×3 (00:51→23:37)
[2017-08-10] MEDS: ALBUTEROL/IPRATROPIUM 3 ML NEB RESP TX SCH ×7 (01:06→23:26)
[2017-08-10 03:34] LABS: ABG Base Excess 8.6 MMOL/L (-2.5-2.5); ABG HCO3 32.2 MMOL/L (20-26); ABG Oxygen Saturation 92.9 % (95-100); ABG PCO2 64.5 MM HG (35-48); ABG PH 7.358 (7.35-7.45); ABG PO2 70.3 MM HG (80-95); Allen Test Positive; Pt O2 Delivery Device Ventilator
[2017-08-10] MEDS: PIPERACILLIN/TAZOBACTAM 3,375 MG in SODIUM CHLORIDE 0.9% 100 ML IV SCH ×3 (04:50→23:37)
[2017-08-10 05:02] LABS: Basophils % 0.1 % (0.0-0.8); Hemoglobin 9.6 GM/DL (14.0-18.0); Immature Granulocytes % 1.3 %; Immature Granulocytes Absolute 0.32 #; Lymphocytes # 0.3 10*3/uL (1.4-4.0); Lymphocytes % 1.2 % (21.2-54.2); Mean Corpuscular Hemoglobin 23 PG (27-34); Mean Corpuscular Volume 77.3 FL (87-102); Mean Platelet Volume 12.4 FL (9.6-12.0); Monocytes # 0.4 10*3/uL (0.11-0.8); Monocytes % 1.4 % (1.7-12.7); NRBC # 0.04 10*3/uL; Neutrophils # 23.9 10*3/uL (1.4-7.4); Platelet Count 114 T/CUMM (130-400); Red Blood Count 4.14 MC/CUMM (3.8-5.5); Red Cell Distribution Width 20.4 % (9.3-17.3); White Blood Count 24.9 T/CUMM (4-12)
[2017-08-10 05:41] LABS: Alanine Aminotransferase 119 U/L (16-61); Albumin 1.5 G/DL (3.4-5.0); Alkaline Phosphatase 79 U/L (45-117); Aspartate Amino Transferase 10 U/L (0-37); Bilirubin,Total < 0.39 MG/DL (0.2-1.0); Blood Urea Nitrogen 16 MG/DL (7-18); Calcium 7.5 MG/DL (8.5-10.1); Glucose 144 MG/DL (74-106); Potassium 4.1 MMOL/L (3.5-5.1); Sodium 143 MMOL/L (136-145)
[2017-08-10] MEDS: fentaNYL INJ 1,250 MCG in SODIUM CHLORIDE 0.9% 225 ML IV SCH ×3 (05:41→20:49)
[2017-08-10 05:51] LABS: Magnesium 2.1 MG/DL (1.8-2.4); Prealbumin 15.9 MG/DL (20-40)
[2017-08-10 06:05] LABS: Band Neutrophils 2 % (0-10); Lymphocytes 1 % (20-55); Platelet Estimate Adequate; Segmented Neutrophils 97 % (50-85); Total Cells Counted 100
[2017-08-10] MEDS: PANTOPRAZOLE 40 MG VIAL IV SCH (09:00)
[2017-08-10] MEDS: methylPREDNISolone SOD SUC 40 MG/1 ML VIAL IV SCH ×2 (09:06→23:37)
[2017-08-10] MEDS: MULTIVITAMIN LIQUID (CENTRUM) 60 ML BOTTLE PER TUBE SCH (09:37)
[2017-08-10] MEDS: VANCOMYCIN INJ 1,000 MG in SODIUM CHLORIDE 0.9% 250 ML IV SCH ×2 (10:43→23:38)
[2017-08-10] MEDS: AMIKACIN 500 MG in SODIUM CHLORIDE 0.9% 100 ML IV SCH ×2 (13:47→23:37)
[2017-08-10] MEDS: NOREPINEPHRINE 8 MG in SODIUM CHLORIDE 0.9% 242 ML IV SCH (18:08)
[2017-08-10] MEDS: ENOXAPARIN 40 MG/0.4 ML SYRINGE SUBCUT SCH (23:37)
[2017-08-11] MEDS: PROPOFOL 1,000 MG/100 ML BOTTLE IV SCH ×5 (00:32→20:08)
[2017-08-11] MEDS: INSULIN REGULAR 100 UNIT/ML SUBCUT SCH ×4 (00:37→18:14)
[2017-08-11] MEDS: AMIODARONE INJ 450 MG in DEXTROSE 5% 241 ML IV SCH ×2 (01:02→17:29)
[2017-08-11] MEDS: fentaNYL INJ 1,250 MCG in SODIUM CHLORIDE 0.9% 225 ML IV SCH ×3 (01:16→19:58)
[2017-08-11] MEDS: ALBUTEROL/IPRATROPIUM 3 ML NEB RESP TX SCH ×6 (03:35→23:38)
[2017-08-11 03:42] LABS: Allen Test Positive; Pt O2 Delivery Device Ventilator
[2017-08-11 03:46] LABS: ABG Base Excess 11.1 MMOL/L (-2.5-2.5); ABG HCO3 35.6 MMOL/L (20-26); ABG Oxygen Saturation 95.7 % (95-100); ABG PH 7.497 (7.35-7.45); ABG PO2 76.9 MM HG (80-95)
[2017-08-11 05:28] LABS: Basophils % 0.1 % (0.0-0.8); Hematocrit 30.8 VOL% (42.0-52.0); Hemoglobin 9.5 GM/DL (14.0-18.0); Immature Granulocytes % 0.9 %; Immature Granulocytes Absolute 0.15 #; Lymphocytes # 0.2 10*3/uL (1.4-4.0); Lymphocytes % 1.1 % (21.2-54.2); Mean Corpuscular HGB Conc 30.8 GM/DL (32-36); Mean Corpuscular Hemoglobin 23 PG (27-34); Mean Corpuscular Volume 75.5 FL (87-102); Mean Platelet Volume 10.6 FL (9.6-12.0); Monocytes # 0.2 10*3/uL (0.11-0.8); NRBC # 0.02 10*3/uL; Neutrophils # 16.8 10*3/uL (1.4-7.4); Neutrophils % 96.9 % (38.7-73.9); Platelet Count 103 T/CUMM (130-400); Red Blood Count 4.08 MC/CUMM (3.8-5.5); White Blood Count 17.3 T/CUMM (4-12)
[2017-08-11] MEDS: PIPERACILLIN/TAZOBACTAM 3,375 MG in SODIUM CHLORIDE 0.9% 100 ML IV SCH ×3 (05:29→21:44)
[2017-08-11 06:00] LABS: Calcium 7.5 MG/DL (8.5-10.1); Magnesium 2.1 MG/DL (1.8-2.4); Osmolality,Calculated 286.1 MOS/KG (273-304); Potassium 3.9 MMOL/L (3.5-5.1)
[2017-08-11] MEDS: AMIKACIN 500 MG in SODIUM CHLORIDE 0.9% 100 ML IV SCH ×3 (06:24→21:44)
[2017-08-11 06:49] LABS: Band Neutrophils 2 % (0-10); Segmented Neutrophils 97 % (50-85); Total Cells Counted 100
[2017-08-11 06:50] LABS: Hypochromasia 1+; Macrocytosis 1+; Platelet Estimate Decreased; Polychromasia Slight
[2017-08-11] MEDS: ZINC OXIDE PASTE 113 GM TUBE TOP SCH ×2 (11:11→21:43)
[2017-08-11] MEDS: MULTIVITAMIN LIQUID (CENTRUM) 60 ML BOTTLE PER TUBE SCH (11:12)
[2017-08-11] MEDS: PANTOPRAZOLE 40 MG VIAL IV SCH (11:12)
[2017-08-11] MEDS: methylPREDNISolone SOD SUC 40 MG/1 ML VIAL IV SCH ×2 (11:14→21:43)
[2017-08-11] MEDS: VANCOMYCIN INJ 1,000 MG in SODIUM CHLORIDE 0.9% 250 ML IV SCH (11:16)
[2017-08-11] MEDS: NOREPINEPHRINE 8 MG in SODIUM CHLORIDE 0.9% 242 ML IV SCH ×2 (18:15→21:46)
[2017-08-11] MEDS: ENOXAPARIN 40 MG/0.4 ML SYRINGE SUBCUT SCH (21:43)
[2017-08-12] MEDS: INSULIN REGULAR 100 UNIT/ML SUBCUT SCH ×4 (02:15→17:35)
[2017-08-12] MEDS: PROPOFOL 1,000 MG/100 ML BOTTLE IV SCH ×5 (02:15→22:51)
[2017-08-12] MEDS: VANCOMYCIN INJ 1,000 MG in SODIUM CHLORIDE 0.9% 250 ML IV SCH ×2 (02:25→15:17)
[2017-08-12] MEDS: ALBUTEROL/IPRATROPIUM 3 ML NEB RESP TX SCH ×5 (03:01→18:02)
[2017-08-12 04:49] LABS: Basophils % 0.1 % (0.0-0.8); Hematocrit 29.8 VOL% (42.0-52.0); Hemoglobin 8.9 GM/DL (14.0-18.0); Immature Granulocytes % 0.7 %; Immature Granulocytes Absolute 0.08 #; Lymphocytes # 0.2 10*3/uL (1.4-4.0); Lymphocytes % 1.3 % (21.2-54.2); Mean Corpuscular HGB Conc 29.9 GM/DL (32-36); Mean Corpuscular Hemoglobin 23 PG (27-34); Mean Corpuscular Volume 76.8 FL (87-102); Mean Platelet Volume 11.2 FL (9.6-12.0); Monocytes # 0.2 10*3/uL (0.11-0.8); Monocytes % 1.9 % (1.7-12.7); NRBC # 0.03 10*3/uL; Neutrophils # 11.4 10*3/uL (1.4-7.4); Platelet Count 100 T/CUMM (130-400); Red Blood Count 3.88 MC/CUMM (3.8-5.5); White Blood Count 11.9 T/CUMM (4-12)
[2017-08-12] MEDS: fentaNYL INJ 1,250 MCG in SODIUM CHLORIDE 0.9% 225 ML IV SCH ×2 (05:15→15:24)
[2017-08-12 05:55] LABS: Calcium 7.9 MG/DL (8.5-10.1); Magnesium 2.2 MG/DL (1.8-2.4); Osmolality,Calculated 286.1 MOS/KG (273-304)
[2017-08-12 05:56] LABS: Band Neutrophils 2 % (0-10); Hypochromasia 1+; Lymphocytes 3 % (20-55); Microcytosis 1+; Segmented Neutrophils 90 % (50-85); Total Cells Counted 100
[2017-08-12 05:57] LABS: Platelet Estimate Adequate
[2017-08-12] MEDS: PIPERACILLIN/TAZOBACTAM 3,375 MG in SODIUM CHLORIDE 0.9% 100 ML IV SCH ×3 (05:57→22:39)
[2017-08-12] MEDS: AMIKACIN 500 MG in SODIUM CHLORIDE 0.9% 100 ML IV SCH ×3 (06:06→22:39)
[2017-08-12] MEDS: AMIODARONE INJ 450 MG in DEXTROSE 5% 241 ML IV SCH ×2 (06:16→15:04)
[2017-08-12 08:10] LABS: ABG Base Excess 10.9 MMOL/L (-2.5-2.5); ABG HCO3 34.6 MMOL/L (20-26); ABG Oxygen Saturation 92.4 % (95-100); ABG PCO2 52.4 MM HG (35-48); ABG PH 7.453 (7.35-7.45); ABG PO2 63.8 MM HG (80-95); ABG TCO2 33.3 MMOL/L (23-27)
[2017-08-12] MEDS: ZINC OXIDE PASTE 113 GM TUBE TOP SCH ×2 (09:16→20:00)
[2017-08-12] MEDS: MULTIVITAMIN LIQUID (CENTRUM) 60 ML BOTTLE PER TUBE SCH (09:16)
[2017-08-12] MEDS: methylPREDNISolone SOD SUC 40 MG/1 ML VIAL IV SCH ×2 (09:16→22:37)
[2017-08-12] MEDS: PANTOPRAZOLE 40 MG VIAL IV SCH (09:16)
[2017-08-12] MEDS: NOREPINEPHRINE 8 MG in SODIUM CHLORIDE 0.9% 242 ML IV SCH (17:37)
[2017-08-12] MEDS: ENOXAPARIN 40 MG/0.4 ML SYRINGE SUBCUT SCH (22:36)
[2017-08-13] MEDS: INSULIN REGULAR 100 UNIT/ML SUBCUT SCH ×4 (00:15→18:29)
[2017-08-13] MEDS: ALBUTEROL/IPRATROPIUM 3 ML NEB RESP TX SCH ×6 (00:56→20:34)
[2017-08-13] MEDS: fentaNYL INJ 1,250 MCG in SODIUM CHLORIDE 0.9% 225 ML IV SCH ×3 (00:57→20:46)
[2017-08-13] MEDS: VANCOMYCIN INJ 1,000 MG in SODIUM CHLORIDE 0.9% 250 ML IV SCH ×2 (03:20→14:00)
[2017-08-13 03:23] LABS: ABG Base Excess 12.4 MMOL/L (-2.5-2.5); ABG HCO3 37.7 MMOL/L (20-26); ABG Oxygen Saturation 94.9 % (95-100); ABG PCO2 52.6 MM HG (35-48); ABG PH 7.473 (7.35-7.45); ABG PO2 69.7 MM HG (80-95); ABG TCO2 39.3 MMOL/L (23-27)
[2017-08-13] MEDS: AMIODARONE INJ 450 MG in DEXTROSE 5% 241 ML IV SCH ×2 (03:46→18:34)
[2017-08-13 05:45] LABS: Hematocrit 30.1 VOL% (42.0-52.0); Hemoglobin 8.9 GM/DL (14.0-18.0); Immature Granulocytes % 0.4 %; Immature Granulocytes Absolute 0.03 #; Lymphocytes # 0.2 10*3/uL (1.4-4.0); Lymphocytes % 2.5 % (21.2-54.2); Mean Corpuscular HGB Conc 29.6 GM/DL (32-36); Mean Corpuscular Hemoglobin 23 PG (27-34); Mean Platelet Volume 11.5 FL (9.6-12.0); Monocytes # 0.2 10*3/uL (0.11-0.8); NRBC # 0.03 10*3/uL; Neutrophils # 7.4 10*3/uL (1.4-7.4); Neutrophils % 94.1 % (38.7-73.9); Platelet Count 112 T/CUMM (130-400); Red Blood Count 3.91 MC/CUMM (3.8-5.5); White Blood Count 7.9 T/CUMM (4-12)
[2017-08-13] MEDS: PROPOFOL 1,000 MG/100 ML BOTTLE IV SCH ×3 (06:03→17:39)
[2017-08-13] MEDS: PIPERACILLIN/TAZOBACTAM 3,375 MG in SODIUM CHLORIDE 0.9% 100 ML IV SCH ×3 (06:06→21:30)
[2017-08-13] MEDS: AMIKACIN 500 MG in SODIUM CHLORIDE 0.9% 100 ML IV SCH ×3 (06:06→21:31)
[2017-08-13 06:07] LABS: Calcium 7.3 MG/DL (8.5-10.1); Magnesium 2.2 MG/DL (1.8-2.4); Osmolality,Calculated 288.1 MOS/KG (273-304); Potassium 4.1 MMOL/L (3.5-5.1)
[2017-08-13] MEDS: NOREPINEPHRINE 8 MG in SODIUM CHLORIDE 0.9% 242 ML IV SCH ×2 (06:45→18:10)
[2017-08-13 06:57] LABS: Anisocytosis 1+; Hypochromasia 2+; Lymphocytes 4 % (20-55); Microcytosis 1+; Ovalocytes 1+; Platelet Estimate Decreased; Segmented Neutrophils 93 % (50-85); Total Cells Counted 100
[2017-08-13] MEDS: MULTIVITAMIN LIQUID (CENTRUM) 60 ML BOTTLE PER TUBE SCH (09:29)
[2017-08-13] MEDS: PANTOPRAZOLE 40 MG VIAL IV SCH (09:29)
[2017-08-13] MEDS: ZINC OXIDE PASTE 113 GM TUBE TOP SCH ×2 (09:29→22:00)
[2017-08-13] MEDS: methylPREDNISolone SOD SUC 40 MG/1 ML VIAL IV SCH ×2 (09:31→21:48)
[2017-08-13] MEDS ORDERED: SODIUM PHOSPHATE ENEMA 133 ML BOTTLE RECTAL PRN (10:09)
[2017-08-13] MEDS: METOCLOPRAMIDE 10 MG/2 ML VIAL IV SCH ×2 (12:33→18:28)
[2017-08-13] MEDS: ENOXAPARIN 40 MG/0.4 ML SYRINGE SUBCUT SCH (21:48)
[2017-08-14] MEDS: METOCLOPRAMIDE 10 MG/2 ML VIAL IV SCH ×4 (00:15→18:55)
[2017-08-14] MEDS: PROPOFOL 1,000 MG/100 ML BOTTLE IV SCH ×5 (00:17→20:03)
[2017-08-14] MEDS: INSULIN REGULAR 100 UNIT/ML SUBCUT SCH ×4 (00:20→18:38)
[2017-08-14] MEDS: ALBUTEROL/IPRATROPIUM 3 ML NEB RESP TX SCH ×7 (00:28→23:32)
[2017-08-14 03:33] LABS: ABG Base Excess 10.5 MMOL/L (-2.5-2.5); ABG HCO3 34.1 MMOL/L (20-26); ABG Oxygen Saturation 89.8 % (95-100); ABG PCO2 54.8 MM HG (35-48); ABG PH 7.432 (7.35-7.45); ABG PO2 57.9 MM HG (80-95); ABG TCO2 33.6 MMOL/L (23-27)
[2017-08-14] MEDS: LORazepam 2 MG/1 ML VIAL IV PRN (04:20)
[2017-08-14] MEDS: fentaNYL INJ 1,250 MCG in SODIUM CHLORIDE 0.9% 225 ML IV SCH ×5 (04:30→23:05)
[2017-08-14 06:19] LABS: Calcium 7.6 MG/DL (8.5-10.1); Potassium 3.8 MMOL/L (3.5-5.1)
[2017-08-14] MEDS: PIPERACILLIN/TAZOBACTAM 3,375 MG in SODIUM CHLORIDE 0.9% 100 ML IV SCH ×3 (06:33→20:38)
[2017-08-14] MEDS: AMIKACIN 500 MG in SODIUM CHLORIDE 0.9% 100 ML IV SCH ×3 (06:34→23:39)
[2017-08-14 06:37] LABS: Magnesium 2.1 MG/DL (1.8-2.4); Prealbumin 10.3 MG/DL (20-40)
[2017-08-14 07:55] LABS: Hematocrit 29.2 VOL% (42.0-52.0); Hemoglobin 8.9 GM/DL (14.0-18.0); Immature Granulocytes % 0.2 %; Immature Granulocytes Absolute 0.02 #; Lymphocytes # 0.2 10*3/uL (1.4-4.0); Lymphocytes % 2.3 % (21.2-54.2); Mean Corpuscular HGB Conc 30.5 GM/DL (32-36); Mean Corpuscular Hemoglobin 23 PG (27-34); Mean Corpuscular Volume 76.8 FL (87-102); Mean Platelet Volume 11.8 FL (9.6-12.0); Monocytes # 0.5 10*3/uL (0.11-0.8); Monocytes % 5.4 % (1.7-12.7); Neutrophils # 7.9 10*3/uL (1.4-7.4); Neutrophils % 92.1 % (38.7-73.9); Platelet Count 104 T/CUMM (130-400); Red Cell Distribution Width 19.8 % (9.3-17.3); White Blood Count 8.6 T/CUMM (4-12)
[2017-08-14 08:17] LABS: Band Neutrophils 7 % (0-10); Lymphocytes 3 % (20-55); Segmented Neutrophils 83 % (50-85); Total Cells Counted 100
[2017-08-14 08:18] LABS: Giant Platelets Few; Hypochromasia 1+; Microcytosis Slight; Platelet Estimate Decreased
[2017-08-14] MEDS: PANTOPRAZOLE 40 MG VIAL IV SCH (09:00)
[2017-08-14] MEDS: methylPREDNISolone SOD SUC 40 MG/1 ML VIAL IV SCH ×2 (09:06→20:32)
[2017-08-14] MEDS ORDERED: FUROSEMIDE 40 MG/4 ML VIAL IV ONE (09:28)
[2017-08-14] MEDS: MULTIVITAMIN LIQUID (CENTRUM) 60 ML BOTTLE PER TUBE SCH (10:06)
[2017-08-14] MEDS: ZINC OXIDE PASTE 113 GM TUBE TOP SCH ×2 (10:06→20:32)
[2017-08-14] MEDS: AMIODARONE INJ 450 MG in DEXTROSE 5% 241 ML IV SCH ×3 (10:53→20:31)
[2017-08-14] MEDS: NOREPINEPHRINE 8 MG in SODIUM CHLORIDE 0.9% 242 ML IV SCH ×2 (11:29→19:06)
[2017-08-14] MEDS ORDERED: POTASSIUM PHOSPHATE 30 MMOL in SODIUM CHLORIDE 0.9% 250 ML IV ONE (17:00)
[2017-08-14] MEDS: ENOXAPARIN 40 MG/0.4 ML SYRINGE SUBCUT SCH (20:32)
[2017-08-15] MEDS: METOCLOPRAMIDE 10 MG/2 ML VIAL IV SCH ×3 (00:04→12:09)
[2017-08-15] MEDS: INSULIN REGULAR 100 UNIT/ML SUBCUT SCH ×5 (00:04→18:32)
[2017-08-15] MEDS: ALBUTEROL/IPRATROPIUM 3 ML NEB RESP TX SCH ×6 (02:12→23:34)
[2017-08-15 03:34] LABS: Allen Test Positive; Pt O2 Delivery Device Ventilator
[2017-08-15 03:45] LABS: ABG Base Excess 13.5 MMOL/L (-2.5-2.5); ABG HCO3 40.5 MMOL/L (20-26); ABG Oxygen Saturation 94.7 % (95-100); ABG PH 7.388 (7.35-7.45); ABG TCO2 42.6 MMOL/L (23-27)
[2017-08-15 03:49] LABS: ABG PCO2 68.7 MM HG (35-48)
[2017-08-15] MEDS: AMIODARONE INJ 450 MG in DEXTROSE 5% 241 ML IV SCH ×2 (04:28→12:31)
[2017-08-15] MEDS: PROPOFOL 1,000 MG/100 ML BOTTLE IV SCH ×4 (04:58→21:07)
[2017-08-15 05:05] LABS: Hematocrit 28.2 VOL% (42.0-52.0); Hemoglobin 8.4 GM/DL (14.0-18.0); Immature Granulocytes % 0.5 %; Immature Granulocytes Absolute 0.04 #; Lymphocytes # 0.3 10*3/uL (1.4-4.0); Lymphocytes % 2.9 % (21.2-54.2); Mean Corpuscular HGB Conc 29.8 GM/DL (32-36); Mean Corpuscular Hemoglobin 23 PG (27-34); Mean Corpuscular Volume 77.9 FL (87-102); Mean Platelet Volume 11.5 FL (9.6-12.0); Monocytes # 0.4 10*3/uL (0.11-0.8); Neutrophils # 8.1 10*3/uL (1.4-7.4); Neutrophils % 92.6 % (38.7-73.9); Platelet Count 90 T/CUMM (130-400); Red Blood Count 3.62 MC/CUMM (3.8-5.5); Red Cell Distribution Width 19.9 % (9.3-17.3); White Blood Count 8.7 T/CUMM (4-12)
[2017-08-15 05:29] LABS: Band Neutrophils 5 % (0-10); Hypochromasia 1+; Lymphocytes 3 % (20-55); Segmented Neutrophils 89 % (50-85); Total Cells Counted 100
[2017-08-15 05:30] LABS: Microcytosis 1+; Platelet Estimate Decreased; Target Cells Slight
[2017-08-15 05:31] LABS: Burr Cells Slight
[2017-08-15 05:50] LABS: Calcium 7.7 MG/DL (8.5-10.1); Magnesium 2.3 MG/DL (1.8-2.4); Potassium 4.4 MMOL/L (3.5-5.1)
[2017-08-15] MEDS: fentaNYL INJ 1,250 MCG in SODIUM CHLORIDE 0.9% 225 ML IV SCH ×4 (06:00→21:08)
[2017-08-15] MEDS: AMIKACIN 500 MG in SODIUM CHLORIDE 0.9% 100 ML IV SCH ×3 (06:02→21:06)
[2017-08-15] MEDS: PIPERACILLIN/TAZOBACTAM 3,375 MG in SODIUM CHLORIDE 0.9% 100 ML IV SCH ×3 (06:02→21:06)
[2017-08-15] MEDS: PANTOPRAZOLE 40 MG VIAL IV SCH (09:20)
[2017-08-15] MEDS: methylPREDNISolone SOD SUC 40 MG/1 ML VIAL IV SCH ×2 (09:30→21:05)
[2017-08-15] MEDS: AMIODARONE 200 MG TABLET PO SCH ×2 (10:55→21:05)
[2017-08-15] MEDS: MULTIVITAMIN LIQUID (CENTRUM) 60 ML BOTTLE PER TUBE SCH (10:57)
[2017-08-15] MEDS: ZINC OXIDE PASTE 113 GM TUBE TOP SCH ×2 (10:57→21:22)
[2017-08-15] MEDS: INSULIN GLARGINE 100 UNIT/ML SUBCUT SCH (17:51)
[2017-08-15] MEDS: LORazepam 2 MG/1 ML VIAL IV PRN (21:05)
[2017-08-15] MEDS: ENOXAPARIN 40 MG/0.4 ML SYRINGE SUBCUT SCH (21:05)
[2017-08-15] MEDS: NOREPINEPHRINE 8 MG in SODIUM CHLORIDE 0.9% 242 ML IV SCH (21:07)
[2017-08-16] MEDS: INSULIN REGULAR 100 UNIT/ML SUBCUT SCH ×4 (00:05→18:09)
[2017-08-16] MEDS: PROPOFOL 1,000 MG/100 ML BOTTLE IV SCH ×5 (00:10→21:05)
[2017-08-16] MEDS: fentaNYL INJ 1,250 MCG in SODIUM CHLORIDE 0.9% 225 ML IV SCH ×4 (00:11→19:16)
[2017-08-16] MEDS: NOREPINEPHRINE 8 MG in SODIUM CHLORIDE 0.9% 242 ML IV SCH ×3 (00:32→19:16)
[2017-08-16] MEDS ORDERED: AMIODARONE 450 MG/9 ML VIAL IV ONE (01:45)
[2017-08-16] MEDS: AMIODARONE INJ 450 MG in DEXTROSE 5% 241 ML IV SCH ×2 (01:50→18:41)
[2017-08-16 02:53] LABS: Pt O2 Delivery Device Ventilator
[2017-08-16 02:55] LABS: ABG Base Excess 11.7 MMOL/L (-2.5-2.5); ABG HCO3 35.4 MMOL/L (20-26); ABG Oxygen Saturation 96.2 % (95-100); ABG PCO2 61.2 MM HG (35-48); ABG PH 7.405 (7.35-7.45); ABG PO2 82.3 MM HG (80-95); ABG TCO2 35.7 MMOL/L (23-27)
[2017-08-16] MEDS: ALBUTEROL/IPRATROPIUM 3 ML NEB RESP TX SCH ×6 (03:45→23:40)
[2017-08-16] MEDS ORDERED: METOPROLOL TARTRATE 5 MG/5 ML VIAL IV ONE (04:29)
[2017-08-16] MEDS: AMIKACIN 500 MG in SODIUM CHLORIDE 0.9% 100 ML IV SCH ×3 (05:20→21:25)
[2017-08-16] MEDS: PIPERACILLIN/TAZOBACTAM 3,375 MG in SODIUM CHLORIDE 0.9% 100 ML IV SCH ×3 (05:20→21:25)
[2017-08-16 05:36] LABS: Basophils % 0.2 % (0.0-0.8); Eosinophils % 0.1 % (0.00-10.9); Hematocrit 28.4 VOL% (42.0-52.0); Hemoglobin 8.5 GM/DL (14.0-18.0); Immature Granulocytes % 0.2 %; Immature Granulocytes Absolute 0.03 #; Lymphocytes # 0.3 10*3/uL (1.4-4.0); Lymphocytes % 2.1 % (21.2-54.2); Mean Corpuscular HGB Conc 29.9 GM/DL (32-36); Mean Corpuscular Hemoglobin 23 PG (27-34); Mean Corpuscular Volume 77.2 FL (87-102); Mean Platelet Volume 11.8 FL (9.6-12.0); Monocytes # 0.4 10*3/uL (0.11-0.8); Monocytes % 3.3 % (1.7-12.7); Neutrophils # 11.3 10*3/uL (1.4-7.4); Neutrophils % 94.1 % (38.7-73.9); Platelet Count 98 T/CUMM (130-400); Red Blood Count 3.68 MC/CUMM (3.8-5.5); Red Cell Distribution Width 19.5 % (9.3-17.3); White Blood Count 12.1 T/CUMM (4-12)
[2017-08-16 06:01] LABS: Calcium 7.6 MG/DL (8.5-10.1); Magnesium 2.1 MG/DL (1.8-2.4); Osmolality,Calculated 284.3 MOS/KG (273-304); Potassium 4.6 MMOL/L (3.5-5.1)
[2017-08-16 06:13] LABS: Band Neutrophils 11 % (0-10); Giant Platelets Few; Hypochromasia 2+; Lymphocytes 2 % (20-55); Ovalocytes Slight; Platelet Estimate Decreased; Segmented Neutrophils 84 % (50-85); Total Cells Counted 100
[2017-08-16 06:14] LABS: Microcytosis Slight
[2017-08-16] MEDS: INSULIN GLARGINE 100 UNIT/ML SUBCUT SCH (09:37)
[2017-08-16] MEDS: methylPREDNISolone SOD SUC 40 MG/1 ML VIAL IV SCH ×2 (09:46→21:24)
[2017-08-16] MEDS: MULTIVITAMIN LIQUID (CENTRUM) 60 ML BOTTLE PER TUBE SCH (09:47)
[2017-08-16] MEDS: ZINC OXIDE PASTE 113 GM TUBE TOP SCH ×2 (09:47→21:23)
[2017-08-16] MEDS: AMIODARONE 200 MG TABLET PO SCH (09:48)
[2017-08-16] MEDS: PANTOPRAZOLE 40 MG VIAL IV SCH (09:48)
[2017-08-16 11:03] LABS: ABG Base Excess 13.2 MMOL/L (-2.5-2.5); ABG HCO3 39.4 MMOL/L (20-26); ABG Oxygen Saturation 94.4 % (95-100); ABG PCO2 60.3 MM HG (35-48); ABG PH 7.433 (7.35-7.45); ABG PO2 70.3 MM HG (80-95); ABG TCO2 41.2 MMOL/L (23-27)
[2017-08-16] MEDS: METOPROLOL TARTRATE 5 MG/5 ML VIAL IV SCH (18:42)
[2017-08-16] MEDS: ENOXAPARIN 40 MG/0.4 ML SYRINGE SUBCUT SCH (21:24)
[2017-08-17] MEDS: INSULIN REGULAR 100 UNIT/ML SUBCUT SCH ×4 (00:52→17:55)
[2017-08-17] MEDS: METOPROLOL TARTRATE 5 MG/5 ML VIAL IV SCH ×4 (01:13→18:09)
[2017-08-17] MEDS: fentaNYL INJ 1,250 MCG in SODIUM CHLORIDE 0.9% 225 ML IV SCH ×4 (01:15→20:20)
[2017-08-17] MEDS: PROPOFOL 1,000 MG/100 ML BOTTLE IV SCH ×4 (02:07→18:57)
[2017-08-17] MEDS: ALBUTEROL/IPRATROPIUM 3 ML NEB RESP TX SCH ×6 (03:13→23:36)
[2017-08-17] MEDS: PIPERACILLIN/TAZOBACTAM 3,375 MG in SODIUM CHLORIDE 0.9% 100 ML IV SCH ×3 (05:29→21:34)
[2017-08-17] MEDS: AMIKACIN 500 MG in SODIUM CHLORIDE 0.9% 100 ML IV SCH ×3 (05:30→21:39)
[2017-08-17 06:41] LABS: Basophils % 0.2 % (0.0-0.8); Hematocrit 26.7 VOL% (42.0-52.0); Hemoglobin 8.1 GM/DL (14.0-18.0); Immature Granulocytes % 0.6 %; Lymphocytes # 0.4 10*3/uL (1.4-4.0); Lymphocytes % 2.3 % (21.2-54.2); Mean Corpuscular HGB Conc 30.3 GM/DL (32-36); Mean Corpuscular Hemoglobin 23 PG (27-34); Mean Corpuscular Volume 76.7 FL (87-102); Mean Platelet Volume 11.6 FL (9.6-12.0); Monocytes # 0.4 10*3/uL (0.11-0.8); Monocytes % 2.4 % (1.7-12.7); Neutrophils # 14.8 10*3/uL (1.4-7.4); Neutrophils % 94.5 % (38.7-73.9); Platelet Count 94 T/CUMM (130-400); Red Blood Count 3.48 MC/CUMM (3.8-5.5); Red Cell Distribution Width 19.6 % (9.3-17.3); White Blood Count 15.7 T/CUMM (4-12)
[2017-08-17 07:07] LABS: Howell-Jolly Bodies Few; Hypochromasia 3+; Macrocytosis 1+; Polychromasia Slight
[2017-08-17 07:15] LABS: Calcium 7.7 MG/DL (8.5-10.1); Magnesium 2.2 MG/DL (1.8-2.4); Osmolality,Calculated 284.3 MOS/KG (273-304); Potassium 4.5 MMOL/L (3.5-5.1)
[2017-08-17] MEDS: methylPREDNISolone SOD SUC 40 MG/1 ML VIAL IV SCH ×2 (08:15→21:30)
[2017-08-17] MEDS: ZINC OXIDE PASTE 113 GM TUBE TOP SCH ×2 (08:15→21:35)
[2017-08-17] MEDS: MULTIVITAMIN LIQUID (CENTRUM) 60 ML BOTTLE PER TUBE SCH (08:15)
[2017-08-17] MEDS: PANTOPRAZOLE 40 MG VIAL IV SCH (08:17)
[2017-08-17] MEDS: INSULIN GLARGINE 100 UNIT/ML SUBCUT SCH (08:41)
[2017-08-17] MEDS ORDERED: FUROSEMIDE 40 MG/4 ML VIAL IV SCH (09:00)
[2017-08-17] MEDS: METOCLOPRAMIDE 10 MG/2 ML VIAL IV SCH ×3 (09:28→18:08)
[2017-08-17] MEDS: AMIODARONE INJ 450 MG in DEXTROSE 5% 241 ML IV SCH (11:54)
[2017-08-17] MEDS: NOREPINEPHRINE 8 MG in SODIUM CHLORIDE 0.9% 242 ML IV SCH (18:42)
[2017-08-17] MEDS: ENOXAPARIN 40 MG/0.4 ML SYRINGE SUBCUT SCH (21:34)
[2017-08-18] MEDS: fentaNYL INJ 1,250 MCG in SODIUM CHLORIDE 0.9% 225 ML IV SCH ×4 (01:15→15:03)
[2017-08-18] MEDS: METOCLOPRAMIDE 10 MG/2 ML VIAL IV SCH ×4 (02:22→18:01)
[2017-08-18] MEDS: METOPROLOL TARTRATE 5 MG/5 ML VIAL IV SCH ×4 (02:28→18:01)
[2017-08-18] MEDS: INSULIN REGULAR 100 UNIT/ML SUBCUT SCH ×4 (02:29→18:02)
[2017-08-18] MEDS: ALBUTEROL/IPRATROPIUM 3 ML NEB RESP TX SCH ×6 (02:35→22:27)
[2017-08-18] MEDS: AMIODARONE INJ 450 MG in DEXTROSE 5% 241 ML IV SCH ×2 (02:38→15:02)
[2017-08-18 04:01] LABS: ABG Base Excess 13.5 MMOL/L (-2.5-2.5); ABG HCO3 37.2 MMOL/L (20-26); ABG Oxygen Saturation 91.7 % (95-100); ABG PH 7.381 (7.35-7.45); ABG PO2 64.9 MM HG (80-95); ABG TCO2 38.4 MMOL/L (23-27); Allen Test Positive; Pt O2 Delivery Device Ventilator
[2017-08-18 04:09] LABS: ABG PCO2 69.2 MM HG (35-48)
[2017-08-18 05:44] LABS: Calcium 7.7 MG/DL (8.5-10.1); Magnesium 2.3 MG/DL (1.8-2.4); Osmolality,Calculated 279.7 MOS/KG (273-304); Potassium 4.6 MMOL/L (3.5-5.1)
[2017-08-18 05:48] LABS: Basophils % 0.2 % (0.0-0.8); Hematocrit 26.8 VOL% (42.0-52.0); Hemoglobin 8.1 GM/DL (14.0-18.0); Immature Granulocytes % 1.4 %; Immature Granulocytes Absolute 0.25 #; Lymphocytes # 0.3 10*3/uL (1.4-4.0); Lymphocytes % 1.7 % (21.2-54.2); Mean Corpuscular HGB Conc 30.2 GM/DL (32-36); Mean Corpuscular Hemoglobin 23 PG (27-34); Mean Corpuscular Volume 76.6 FL (87-102); Monocytes # 0.3 10*3/uL (0.11-0.8); Monocytes % 1.6 % (1.7-12.7); NRBC # 0.02 10*3/uL; Neutrophils % 95.1 % (38.7-73.9); Platelet Count 100 T/CUMM (130-400); Red Cell Distribution Width 19.4 % (9.3-17.3); White Blood Count 17.9 T/CUMM (4-12)
[2017-08-18 05:51] LABS: Prealbumin 9.3 MG/DL (20-40)
[2017-08-18] MEDS: AMIKACIN 500 MG in SODIUM CHLORIDE 0.9% 100 ML IV SCH ×3 (06:21→22:45)
[2017-08-18] MEDS: PIPERACILLIN/TAZOBACTAM 3,375 MG in SODIUM CHLORIDE 0.9% 100 ML IV SCH ×3 (06:21→21:47)
[2017-08-18] MEDS: PROPOFOL 1,000 MG/100 ML BOTTLE IV SCH ×5 (06:30→21:01)
[2017-08-18 06:35] LABS: Band Neutrophils 4 % (0-10); Eosinophils 1 % (0-10); Giant Platelets Few; Hypochromasia 1+; Lymphocytes 2 % (20-55); Microcytosis Slight; Ovalocytes Slight; Platelet Estimate Decreased; Segmented Neutrophils 91 % (50-85); Total Cells Counted 100
[2017-08-18] MEDS: INSULIN GLARGINE 100 UNIT/ML SUBCUT SCH (09:47)
[2017-08-18] MEDS: PANTOPRAZOLE 40 MG VIAL IV SCH (09:47)
[2017-08-18] MEDS: FUROSEMIDE 40 MG/4 ML VIAL IV SCH (09:48)
[2017-08-18] MEDS: MULTIVITAMIN LIQUID (CENTRUM) 60 ML BOTTLE PER TUBE SCH (09:48)
[2017-08-18] MEDS: ZINC OXIDE PASTE 113 GM TUBE TOP SCH ×2 (09:48→21:37)
[2017-08-18] MEDS: methylPREDNISolone SOD SUC 40 MG/1 ML VIAL IV SCH ×2 (09:48→21:38)
[2017-08-18] MEDS: NOREPINEPHRINE 8 MG in SODIUM CHLORIDE 0.9% 242 ML IV SCH (18:37)
[2017-08-18] MEDS: ENOXAPARIN 40 MG/0.4 ML SYRINGE SUBCUT SCH (21:38)
[2017-08-18] MEDS ORDERED: fentaNYL INJ 2,500 MCG in SODIUM CHLORIDE 0.9% 500 ML IV SCH (22:00)
[2017-08-19] MEDS: INSULIN REGULAR 100 UNIT/ML SUBCUT SCH ×4 (00:06→17:27)
[2017-08-19] MEDS: METOPROLOL TARTRATE 5 MG/5 ML VIAL IV SCH ×4 (00:24→17:25)
[2017-08-19] MEDS: METOCLOPRAMIDE 10 MG/2 ML VIAL IV SCH ×4 (00:29→17:25)
[2017-08-19] MEDS: PROPOFOL 1,000 MG/100 ML BOTTLE IV SCH ×4 (01:23→18:31)
[2017-08-19] MEDS: ALBUTEROL/IPRATROPIUM 3 ML NEB RESP TX SCH ×6 (03:51→22:21)
[2017-08-19] MEDS: PIPERACILLIN/TAZOBACTAM 3,375 MG in SODIUM CHLORIDE 0.9% 100 ML IV SCH ×3 (05:37→21:13)
[2017-08-19 05:43] LABS: Basophils % 0.2 % (0.0-0.8); Hematocrit 27.5 VOL% (42.0-52.0); Hemoglobin 8.1 GM/DL (14.0-18.0); Immature Granulocytes % 2.6 %; Immature Granulocytes Absolute 0.43 #; Lymphocytes # 0.3 10*3/uL (1.4-4.0); Lymphocytes % 1.8 % (21.2-54.2); Mean Corpuscular HGB Conc 29.5 GM/DL (32-36); Mean Corpuscular Hemoglobin 23 PG (27-34); Mean Corpuscular Volume 77.7 FL (87-102); Mean Platelet Volume 12.6 FL (9.6-12.0); Monocytes # 0.3 10*3/uL (0.11-0.8); Monocytes % 1.6 % (1.7-12.7); Neutrophils # 15.6 10*3/uL (1.4-7.4); Neutrophils % 93.8 % (38.7-73.9); Platelet Count 112 T/CUMM (130-400); Red Blood Count 3.54 MC/CUMM (3.8-5.5); Red Cell Distribution Width 19.3 % (9.3-17.3); White Blood Count 16.6 T/CUMM (4-12)
[2017-08-19 06:12] LABS: Calcium 7.8 MG/DL (8.5-10.1); Magnesium 2.3 MG/DL (1.8-2.4); Osmolality,Calculated 281.5 MOS/KG (273-304); Potassium 4.6 MMOL/L (3.5-5.1)
[2017-08-19] MEDS: AMIKACIN 500 MG in SODIUM CHLORIDE 0.9% 100 ML IV SCH ×3 (06:20→21:13)
[2017-08-19 06:41] LABS: Band Neutrophils 5 % (0-10); Hypochromasia 2+; Lymphocytes 2 % (20-55); Macrocytosis 1+; Microcytosis 1+; Platelet Estimate Decreased; Segmented Neutrophils 91 % (50-85); Target Cells Slight; Total Cells Counted 100
[2017-08-19] MEDS: methylPREDNISolone SOD SUC 40 MG/1 ML VIAL IV SCH ×2 (08:23→21:12)
[2017-08-19] MEDS: FUROSEMIDE 40 MG/4 ML VIAL IV SCH (08:23)
[2017-08-19] MEDS: INSULIN GLARGINE 100 UNIT/ML SUBCUT SCH (08:24)
[2017-08-19] MEDS: PANTOPRAZOLE 40 MG VIAL IV SCH (08:24)
[2017-08-19] MEDS: fentaNYL INJ 2,500 MCG in SODIUM CHLORIDE 0.9% 450 ML IV SCH ×2 (08:24→18:25)
[2017-08-19] MEDS: ZINC OXIDE PASTE 113 GM TUBE TOP SCH ×2 (08:28→21:12)
[2017-08-19] MEDS: AMIODARONE INJ 450 MG in DEXTROSE 5% 241 ML IV SCH ×2 (08:31→08:34)
[2017-08-19] MEDS: MULTIVITAMIN LIQUID (CENTRUM) 60 ML BOTTLE PER TUBE SCH (09:35)
[2017-08-19] MEDS: NOREPINEPHRINE 8 MG in SODIUM CHLORIDE 0.9% 242 ML IV SCH (17:14)
[2017-08-19] MEDS: ENOXAPARIN 40 MG/0.4 ML SYRINGE SUBCUT SCH (21:12)
[2017-08-20] MEDS: INSULIN REGULAR 100 UNIT/ML SUBCUT SCH ×5 (00:10→23:59)
[2017-08-20] MEDS: METOCLOPRAMIDE 10 MG/2 ML VIAL IV SCH ×4 (00:22→17:17)
[2017-08-20] MEDS: METOPROLOL TARTRATE 5 MG/5 ML VIAL IV SCH ×4 (00:23→17:17)
[2017-08-20 00:26] LABS: ABG Base Excess 15.8 MMOL/L (-2.5-2.5); ABG HCO3 44.3 MMOL/L (20-26); ABG Oxygen Saturation 90.6 % (95-100); ABG PH 7.327 (7.35-7.45); ABG PO2 62.9 MM HG (80-95); ABG TCO2 46.9 MMOL/L (23-27); Allen Test Positive; Pt O2 Delivery Device Ventilator
[2017-08-20 00:30] LABS: ABG PCO2 86.5 MM HG (35-48)
[2017-08-20] MEDS: AMIODARONE INJ 450 MG in DEXTROSE 5% 241 ML IV SCH ×3 (01:06→20:03)
[2017-08-20] MEDS: VANCOMYCIN INJ 1,000 MG in SODIUM CHLORIDE 0.9% 250 ML IV SCH ×2 (01:38→09:41)
[2017-08-20] MEDS: ALBUTEROL/IPRATROPIUM 3 ML NEB RESP TX SCH ×5 (02:33→20:01)
[2017-08-20] MEDS: fentaNYL INJ 2,500 MCG in SODIUM CHLORIDE 0.9% 450 ML IV SCH ×4 (03:23→21:56)
[2017-08-20] MEDS: PROPOFOL 1,000 MG/100 ML BOTTLE IV SCH ×5 (03:57→23:44)
[2017-08-20] MEDS: PIPERACILLIN/TAZOBACTAM 3,375 MG in SODIUM CHLORIDE 0.9% 100 ML IV SCH ×3 (04:36→21:14)
[2017-08-20 04:50] LABS: ABG Base Excess 15.4 MMOL/L (-2.5-2.5); ABG HCO3 43.1 MMOL/L (20-26); ABG Oxygen Saturation 93.3 % (95-100); ABG PH 7.363 (7.35-7.45); ABG PO2 73.7 MM HG (80-95); ABG TCO2 45.5 MMOL/L (23-27); Allen Test Positive; Pt O2 Delivery Device Ventilator
[2017-08-20 04:52] LABS: ABG PCO2 77.5 MM HG (35-48)
[2017-08-20] MEDS: AMIKACIN 500 MG in SODIUM CHLORIDE 0.9% 100 ML IV SCH ×3 (05:03→21:14)
[2017-08-20 05:23] LABS: Calcium 6.7 MG/DL (8.5-10.1); Osmolality,Calculated 277.8 MOS/KG (273-304); Potassium 4.3 MMOL/L (3.5-5.1)
[2017-08-20 06:04] LABS: Basophils % 0.1 % (0.0-0.8); Hematocrit 24.8 VOL% (42.0-52.0); Hemoglobin 7.4 GM/DL (14.0-18.0); Immature Granulocytes % 1.4 %; Immature Granulocytes Absolute 0.24 #; Lymphocytes # 0.2 10*3/uL (1.4-4.0); Lymphocytes % 1.3 % (21.2-54.2); Mean Corpuscular HGB Conc 29.8 GM/DL (32-36); Mean Corpuscular Hemoglobin 24 PG (27-34); Mean Corpuscular Volume 78.7 FL (87-102); Monocytes # 0.3 10*3/uL (0.11-0.8); Monocytes % 1.9 % (1.7-12.7); NRBC # 0.02 10*3/uL; Neutrophils # 16.8 10*3/uL (1.4-7.4); Neutrophils % 95.3 % (38.7-73.9); Platelet Count 113 T/CUMM (130-400); Red Blood Count 3.15 MC/CUMM (3.8-5.5); Red Cell Distribution Width 19.6 % (9.3-17.3); White Blood Count 17.6 T/CUMM (4-12)
[2017-08-20 07:40] LABS: Atypical Lymphocytes Few; Band Neutrophils 5 % (0-10); Hypochromasia 2+; Lymphocytes 4 % (20-55); Microcytosis 2+; Myelocytes 1 %; Platelet Estimate Decreased; Segmented Neutrophils 86 % (50-85); Target Cells Slight; Total Cells Counted 100
[2017-08-20] MEDS: methylPREDNISolone SOD SUC 40 MG/1 ML VIAL IV SCH ×2 (08:14→16:12)
[2017-08-20] MEDS: INSULIN GLARGINE 100 UNIT/ML SUBCUT SCH (08:14)
[2017-08-20] MEDS: FUROSEMIDE 40 MG/4 ML VIAL IV SCH (08:14)
[2017-08-20] MEDS: ZINC OXIDE PASTE 113 GM TUBE TOP SCH ×2 (08:15→21:14)
[2017-08-20] MEDS: MULTIVITAMIN LIQUID (CENTRUM) 60 ML BOTTLE PER TUBE SCH (08:15)
[2017-08-20] MEDS: PANTOPRAZOLE 40 MG VIAL IV SCH (08:15)
[2017-08-20] MEDS: NOREPINEPHRINE 8 MG in SODIUM CHLORIDE 0.9% 242 ML IV SCH (17:37)
[2017-08-20] MEDS: VANCOMYCIN INJ 1,000 MG in SODIUM CHLORIDE 0.45% 250 ML IV SCH (18:09)
[2017-08-20] MEDS: ENOXAPARIN 40 MG/0.4 ML SYRINGE SUBCUT SCH (21:14)
[2017-08-21] MEDS: methylPREDNISolone SOD SUC 40 MG/1 ML VIAL IV SCH ×3 (00:07→17:22)
[2017-08-21] MEDS: METOCLOPRAMIDE 10 MG/2 ML VIAL IV SCH ×4 (00:07→17:54)
[2017-08-21] MEDS: METOPROLOL TARTRATE 5 MG/5 ML VIAL IV SCH ×4 (00:07→17:34)
[2017-08-21] MEDS: ALBUTEROL/IPRATROPIUM 3 ML NEB RESP TX SCH ×5 (00:42→17:08)
[2017-08-21 01:58] LABS: Basophils % 0.1 % (0.0-0.8); Hematocrit 23.9 VOL% (42.0-52.0); Hemoglobin 7.4 GM/DL (14.0-18.0); Immature Granulocytes % 2.5 %; Immature Granulocytes Absolute 0.43 #; Lymphocytes # 0.3 10*3/uL (1.4-4.0); Lymphocytes % 1.7 % (21.2-54.2); Mean Corpuscular Hemoglobin 24 PG (27-34); Mean Corpuscular Volume 76.6 FL (87-102); Monocytes # 0.3 10*3/uL (0.11-0.8); Monocytes % 1.5 % (1.7-12.7); NRBC # 0.02 10*3/uL; Neutrophils # 16.2 10*3/uL (1.4-7.4); Neutrophils % 94.2 % (38.7-73.9); Platelet Count 129 T/CUMM (130-400); Red Blood Count 3.12 MC/CUMM (3.8-5.5); Red Cell Distribution Width 19.5 % (9.3-17.3); White Blood Count 17.2 T/CUMM (4-12)
[2017-08-21 02:12] LABS: Alanine Aminotransferase 36 U/L (16-61); Albumin 1.1 G/DL (3.4-5.0); Alkaline Phosphatase 126 U/L (45-117); Aspartate Amino Transferase 22 U/L (0-37); Bilirubin,Total < 0.39 MG/DL (0.2-1.0); Blood Urea Nitrogen 23 MG/DL (7-18); Calcium 7.4 MG/DL (8.5-10.1); Glucose 126 MG/DL (74-106); Osmolality,Calculated 282.5 MOS/KG (273-304); Potassium 4.4 MMOL/L (3.5-5.1); Sodium 139 MMOL/L (136-145); Total Protein 4.6 G/DL (6.4-8.3)
[2017-08-21 02:14] LABS: Magnesium 2.1 MG/DL (1.8-2.4); Prealbumin 13.9 MG/DL (20-40)
[2017-08-21] MEDS: AMIODARONE INJ 450 MG in DEXTROSE 5% 241 ML IV SCH ×3 (02:16→17:23)
[2017-08-21] MEDS: VANCOMYCIN INJ 1,000 MG in SODIUM CHLORIDE 0.45% 250 ML IV SCH ×2 (02:34→11:28)
[2017-08-21 05:08] LABS: Band Neutrophils 4 % (0-10); Hypochromasia 1+; Lymphocytes 4 % (20-55); Platelet Estimate Normal; Segmented Neutrophils 92 % (50-85); Total Cells Counted 100
[2017-08-21] MEDS: AMIKACIN 500 MG in SODIUM CHLORIDE 0.9% 100 ML IV SCH ×2 (05:38→17:31)
[2017-08-21] MEDS: fentaNYL INJ 2,500 MCG in SODIUM CHLORIDE 0.9% 450 ML IV SCH ×3 (05:38→13:33)
[2017-08-21] MEDS: PROPOFOL 1,000 MG/100 ML BOTTLE IV SCH ×2 (05:39→11:20)
[2017-08-21] MEDS: INSULIN REGULAR 100 UNIT/ML SUBCUT SCH ×3 (06:10→17:27)
[2017-08-21] MEDS: PIPERACILLIN/TAZOBACTAM 3,375 MG in SODIUM CHLORIDE 0.9% 100 ML IV SCH (06:10)
[2017-08-21] MEDS: MULTIVITAMIN LIQUID (CENTRUM) 60 ML BOTTLE PER TUBE SCH (09:28)
[2017-08-21] MEDS: ZINC OXIDE PASTE 113 GM TUBE TOP SCH (09:29)
[2017-08-21] MEDS: FUROSEMIDE 40 MG/4 ML VIAL IV SCH (09:32)
[2017-08-21] MEDS: PANTOPRAZOLE 40 MG VIAL IV SCH (09:35)
[2017-08-21] MEDS: INSULIN GLARGINE 100 UNIT/ML SUBCUT SCH (09:38)
[2017-08-21] MEDS ORDERED: MORPHINE 2 MG/1 ML SYRINGE IV PRN (14:32)
[2017-08-21 17:41] VITALS: BP 149/92
== END 2017-08-21 15:45 | disposition expired | DRG 207 ==
LOC: EDUNIT# → EDBD → N.ED 14:30 → N.EDINP 15:46 → SUATTDRO 15:46 → SUPCPDRO 15:46 → N.CC 17:36
PROVIDERS: ADMIT Hospitalist; ATTEND Internal Medicine